=== PATIENT | male | born 1940 | race Caucasian/White ===

== ENCOUNTER 2017-09-07 06:09 | Day surgery (SDC) | payer MEDICARE ==
[2017-09-06 12:16] LABS: BASOPHILS % (AUTO) 0.4 % (0-1); EOSINOPHILS # (AUTO) 0.3 X10'3 (0-0.9); EOSINOPHILS % (AUTO) 3.6 % (0-6); HEMATOCRIT 34.6 % (42.0-52.0); HEMOGLOBIN 11.4 g/dl (14.0-17.9); LYMPHOCYTES # (AUTO) 1.3 X10'3 (1.1-4.8); LYMPHOCYTES % (AUTO) 16.6 % (21-51); MEAN CORPUSCULAR HEMOGLOBIN 28.2 PG (27.0-31.0); MEAN CORPUSCULAR VOLUME 85.6 FL (78-98); MEAN PLATELET VOLUME 6.2 FL (7.4-10.4); MONOCYTES # (AUTO) 0.6 X10'3 (0-0.9); MONOCYTES % (AUTO) 7.8 % (2-12); NEUTROPHILS # (AUTO) 5.8 X10'3 (1.8-7.7); NEUTROPHILS % (AUTO) 71.6 % (42-75); PLATELET COUNT 244 X10'3 (140-440); RED BLOOD COUNT 4.05 X10'6 (4.70-6.10); RED CELL DISTRIBUTION WIDTH 16.6 % (11.5-14.5); WHITE BLOOD COUNT 8.1 X10'3 (4.5-11.0)
[2017-09-06 12:26] LABS: PARTIAL THROMBOPLASTIN TIME 24 SECONDS (22-32); PROTHROMBIN TIME 9.9 SECONDS (9.0-12.0)
[2017-09-06 12:41] LABS: ALANINE AMINOTRANSFERASE 38 U/L (12-78); ALBUMIN 3.3 G/DL (3.4-5.0); ALBUMIN/GLOBULIN RATIO 0.8 (1.1-1.5); ALKALINE PHOSPHATASE 53 IU/L (46-116); ANION GAP 11 (8-16); ASPARTATE AMINO TRANSFERASE 26 U/L (10-37); BILIRUBIN,TOTAL 0.5 MG/DL (0.1-1.0); BLOOD UREA NITROGEN 22 MG/DL (7-18); BUN/CREATININE RATIO 12.6 (5.4-32.0); CALCIUM 8.8 MG/DL (8.5-10.1); CHLORIDE 105 MMOL/L (99-107); CREATININE 1.75 MG/DL (0.60-1.10); GLUCOSE 107 MG/DL (70-104); POTASSIUM 3.8 MMOL/L (3.5-5.1); SODIUM 144 MMOL/L (135-145); TOTAL CARBON DIOXIDE 28.5 MMOL/L (24-32); TOTAL PROTEIN 7.4 G/DL (6.4-8.2); eGFR 38 ML/MIN
[2017-09-07] VITALS (10 sets, daily range): BP systolic 104–132; BP diastolic 59–81
[~2017-09-07] VITALS: Ht 172.7 cm; Wt 94.5 kg
[~2017-09-07 06:09] MED LIST: AMIO200T57 PO; APIX5TAB3 PO; ASPI-611 PO; CARV-50 PO; FURO80TA87 PO; GLIM1TAB46 PO; HYDR-565 PO; LANS15TA5 PO; LOSA50TA3 PO; METF1000 PO; NAPR220T67 PO; PER5325T PO; POTA10TA36 PO; lipitor PO
[2017-09-07] MEDS ORDERED: normal saline 1000ml 1,000 ML IV SCH (06:40)
[2017-09-07] MEDS ORDERED: ONDA4TAB6 PO (06:54)
[2017-09-07] MEDS ORDERED: ATOR80TA PO (06:54)
[2017-09-07] MEDS ORDERED: ZAR2.5T PO (07:04)
[2017-09-07] MEDS ORDERED: LIDOcaine 1.5% w/epinephrine 1:200,000 5ml ampul ONE (09:01)
[2017-09-07] MEDS ORDERED: cefazolin 1gm/NS 100mL 100 ML IV ONE (09:01)
[2017-09-07] MEDS ORDERED: ceFAZolin 1000mg inj ONE (09:01)
[2017-09-07] MEDS ORDERED: fentaNYL/PF 50MCG/1 ML 2ML syringe ONE ×2 (09:22→09:46)
[2017-09-07] MEDS ORDERED: midazolam 2 mg/2 ml injection ONE ×2 (09:22→09:46)
[2017-09-07] MEDS ORDERED: WATER IV SCH (16:00)
[2017-09-07] MEDS ORDERED: DEXTROSE 5% IV SCH (16:00)
[2017-09-07] MEDS ORDERED: CEFAZOLIN IV SCH (16:00)
[2017-09-07] MEDS ORDERED: D5W IV SCH (16:00)
[2017-09-07] MEDS ORDERED: ceFAZolin 1GM/NS- ADD-VANTAGE 1 GM in NS 100ML IV SCH (16:00)
== END 2017-09-07 15:15 | disposition home or self-care (01) ==
LOC: SSTAY O 06:09
PROVIDERS: ATTEND Internal Medicine Cardiovascular Disease
DX: Z45.02 Encounter for adjustment and management of automatic implantable cardiac defibrillator (principal); I48.91 Unspecified atrial fibrillation; I11.0 Hypertensive heart disease with heart failure; I50.22 Chronic systolic (congestive) heart failure; E78.5 Hyperlipidemia, unspecified; E11.9 Type 2 diabetes mellitus without complications; I42.9 Cardiomyopathy, unspecified; I05.9 Rheumatic mitral valve disease, unspecified; I25.2 Old myocardial infarction; Z95.5 Presence of coronary angioplasty implant and graft; Z95.1 Presence of aortocoronary bypass graft
CPT/HCPCS: 33264; 36415; 80053; 83880; 84439; 84443; 85025; 85610; 85730; 93005; A4565; A6258; A6449; C1882; J0690; J2250; J3010; J3490; J7030; 99152; 99153; A4620; J7060

== ENCOUNTER 2017-09-20 06:52 | Outpatient (CLI) | payer MEDICARE ==
[~2017-09-20] VITALS: Ht 172.7 cm; Wt 90.7 kg
[~2017-09-20 06:52] MED LIST changes: -ASPI-611 PO; +ATOR80TA PO; -NAPR220T67 PO; +ONDA4TAB6 PO; -PER5325T PO; +ZAR2.5T PO; -lipitor PO
[2017-09-20] MEDS ORDERED: albuterol 2.5 MG/3 ML nebule NEB PRN (07:55)
[2017-09-20 09:34] LABS: ALBUMIN 3.2 G/DL (3.4-5.0); ANION GAP 9 (8-16); BLOOD UREA NITROGEN 23 MG/DL (7-18); BUN/CREATININE RATIO 13.7 (5.4-32.0); CALCIUM 9.2 MG/DL (8.5-10.1); CHLORIDE 101 MMOL/L (99-107); CREATININE 1.68 MG/DL (0.60-1.10); GLUCOSE 235 MG/DL (70-104); POTASSIUM 3.5 MMOL/L (3.5-5.1); SODIUM 141 MMOL/L (135-145); TOTAL CARBON DIOXIDE 31.2 MMOL/L (24-32); eGFR 40 ML/MIN
== END 2017-09-20 23:59 | disposition home or self-care (01) ==
LOC: RT 06:52
PROVIDERS: ATTEND Internal Medicine Cardiovascular Disease
DX: J98.11 Atelectasis (principal); I51.7 Cardiomegaly; R06.09 Other forms of dyspnea; Z95.1 Presence of aortocoronary bypass graft
CPT/HCPCS: 36415; 71046; 80048; 83880; 85018; 94060; 94640; 94727; 94729; 94760; A6449

== ENCOUNTER 2019-07-02 07:51 | Emergency (ER) | payer MEDICARE ==
[~2019-07-02] VITALS: Ht 170.2 cm; Wt 90.9 kg
[~2019-07-02 07:51] MED LIST changes: +AMIO200T54 PO; -AMIO200T57 PO; +GLIM1TAB3 PO; -GLIM1TAB46 PO; +HYDR-4353 PO; -HYDR-565 PO
--- NOTE | 2019-07-02 08:13 | NUR ---
LABS DRAWN BY INSURANCE SALES ASSOCIATE, PT NOW GOING TO XRAY VIA WHEELCHAIR WITH KEY BED INSTALLER PER ORDERS.
[2019-07-02 08:30] LABS: BASOPHILS # (AUTO) 0.1 X10'3 (0-0.2); BASOPHILS % (AUTO) 0.7 % (0-1); EOSINOPHILS # (AUTO) 0.1 X10'3 (0-0.9); EOSINOPHILS % (AUTO) 1.1 % (0-6); HEMATOCRIT 32.7 % (42.0-52.0); LYMPHOCYTES # (AUTO) 0.7 X10'3 (1.1-4.8); LYMPHOCYTES % (AUTO) 5.7 % (21-51); MEAN CORPUSCULAR HEMOGLOBIN 23.9 PG (27.0-31.0); MEAN CORPUSCULAR HGB CONC 30.7 g/dL (33.0-36.5); MEAN CORPUSCULAR VOLUME 77.7 FL (78-98); MEAN PLATELET VOLUME 6.7 FL (7.4-10.4); MONOCYTES # (AUTO) 0.7 X10'3 (0-0.9); MONOCYTES % (AUTO) 5.8 % (2-12); NEUTROPHILS % (AUTO) 86.7 % (42-75); PLATELET COUNT 270 X10'3 (140-440); RED BLOOD COUNT 4.21 X10'6 (4.70-6.10); RED CELL DISTRIBUTION WIDTH 20.5 % (11.5-14.5); WHITE BLOOD COUNT 11.5 X10'3 (4.5-11.0)
[2019-07-02] MEDS ORDERED: PRED5TAB PO (08:32)
[2019-07-02 08:47] LABS: ALANINE AMINOTRANSFERASE 42 U/L (12-78); ALBUMIN 3.3 G/DL (3.4-5.0); ALBUMIN/GLOBULIN RATIO 0.9 (1.1-1.5); ALKALINE PHOSPHATASE 39 IU/L (46-116); ANION GAP 7 (8-16); ASPARTATE AMINO TRANSFERASE 28 U/L (10-37); BILIRUBIN,TOTAL 0.8 MG/DL (0.1-1.0); BLOOD UREA NITROGEN 24 MG/DL (7-18); CALCIUM 8.9 MG/DL (8.5-10.1); CHLORIDE 103 MMOL/L (99-107); GLUCOSE 247 MG/DL (70-104); POTASSIUM 5.3 MMOL/L (3.5-5.1); SODIUM 136 MMOL/L (135-145); TOTAL CARBON DIOXIDE 26.3 MMOL/L (24-32); TOTAL PROTEIN 6.9 G/DL (6.4-8.2); eGFR 45 ML/MIN
[2019-07-02 09:07] LABS: ANISOCYTOSIS 3+; PLATELET ESTIMATE NORMAL
[2019-07-02 09:08] LABS: HYPOCHROMASIA 1+; MICROCYTOSIS 1+
[2019-07-02] MEDS ORDERED: furosemide 10 MG/1 ML 10ml inj IV ONE (09:45)
[2019-07-02 09:53] VITALS: BP 136/81
--- NOTE | 2019-07-02 10:00 | NUR ---
pulled blood from pt iv for lab, updated vs, pt to be medicated with iv lasix per orders by daniel tomlinson.
== END 2019-07-02 10:20 | disposition home or self-care (01) ==
LOC: ER 07:51
DX: I50.9 Heart failure, unspecified (principal); E87.5 Hyperkalemia; Z95.1 Presence of aortocoronary bypass graft; Z98.890 Other specified postprocedural states; Z91.040 Latex allergy status; Z79.84 Long term (current) use of oral hypoglycemic drugs; Z79.899 Other long term (current) drug therapy
CPT/HCPCS: 36415; 71046; 80053; 83605; 83880; 84484; 85025; 87040; 93005; 96374; 99285; J1940

== ENCOUNTER 2019-07-10 10:42 | Day surgery (SDC) | payer MEDICARE ==
[2019-07-09 09:28] LABS: BASOPHILS # (AUTO) 0.1 X10'3 (0-0.2); BASOPHILS % (AUTO) 0.8 % (0-1); EOSINOPHILS # (AUTO) 0.2 X10'3 (0-0.9); EOSINOPHILS % (AUTO) 1.8 % (0-6); HEMATOCRIT 32.5 % (42.0-52.0); HEMOGLOBIN 9.9 g/dl (14.0-17.9); LYMPHOCYTES # (AUTO) 0.9 X10'3 (1.1-4.8); LYMPHOCYTES % (AUTO) 7.6 % (21-51); MEAN CORPUSCULAR HEMOGLOBIN 23.4 PG (27.0-31.0); MEAN CORPUSCULAR HGB CONC 30.6 g/dL (33.0-36.5); MEAN CORPUSCULAR VOLUME 76.5 FL (78-98); MEAN PLATELET VOLUME 6.6 FL (7.4-10.4); MONOCYTES # (AUTO) 0.8 X10'3 (0-0.9); MONOCYTES % (AUTO) 6.8 % (2-12); NEUTROPHILS # (AUTO) 10.1 X10'3 (1.8-7.7); PLATELET COUNT 297 X10'3 (140-440); RED BLOOD COUNT 4.25 X10'6 (4.70-6.10); RED CELL DISTRIBUTION WIDTH 19.7 % (11.5-14.5); WHITE BLOOD COUNT 12.1 X10'3 (4.5-11.0)
[2019-07-09 09:49] LABS: ALBUMIN 3.2 G/DL (3.4-5.0); ANION GAP 10 (8-16); BLOOD UREA NITROGEN 19 MG/DL (7-18); CALCIUM 8.7 MG/DL (8.5-10.1); CHLORIDE 103 MMOL/L (99-107); CREATININE 1.58 MG/DL (0.60-1.10); GLUCOSE 246 MG/DL (70-104); POTASSIUM 3.7 MMOL/L (3.5-5.1); SODIUM 140 MMOL/L (135-145); eGFR 43 ML/MIN
[2019-07-09 10:35] LABS: ANISOCYTOSIS 2+; LARGE PLATELETS FEW; MICROCYTOSIS 1+; PLATELET ESTIMATE NORMAL
[2019-07-10] VITALS (18 sets, daily range): BP systolic 99–127; BP diastolic 62–83
[~2019-07-10] VITALS: Ht 170.2 cm; Wt 89.3 kg
[~2019-07-10 10:42] MED LIST changes: -AMIO200T54 PO; -ATOR80TA PO; -LANS15TA5 PO; -LOSA50TA3 PO; +PRED5TAB PO
[2019-07-10] MEDS ORDERED: morphine 10mg/ml inj. IV ONE (11:10)
[2019-07-10] MEDS ORDERED: amiodarone in dextrose, iso-osm 150mg/100ml bag IV ONE (11:10)
[2019-07-10] MEDS ORDERED: MIDAZolam 5mg/ml 2ml vial IV ONE (11:10)
[2019-07-10] MEDS ORDERED: normal saline 1000ml 1,000 ML IV SCH (11:10)
[2019-07-10] MEDS ORDERED: diphenhydrAMINE 25mg capsule PO ONE (11:10)
[2019-07-10] MEDS ORDERED: atropine 0.1mg/ml 10ml syringe IV ONE (11:10)
[2019-07-10] MEDS ORDERED: LORazepam 0.5 MG tablet PO ONE (11:10)
[2019-07-10] MEDS ORDERED: PER5325T PO (11:26)
== END 2019-07-10 15:45 | disposition home or self-care (01) ==
LOC: SSTAY O 10:42
PROVIDERS: ATTEND Internal Medicine Cardiovascular Disease
DX: I48.19 Other persistent atrial fibrillation (principal); I25.10 Atherosclerotic heart disease of native coronary artery without angina pectoris; I11.0 Hypertensive heart disease with heart failure; I50.22 Chronic systolic (congestive) heart failure; E11.9 Type 2 diabetes mellitus without complications; E78.5 Hyperlipidemia, unspecified; I25.2 Old myocardial infarction; E66.3 Overweight; Z68.29 Body mass index [BMI] 29.0-29.9, adult; Z79.899 Other long term (current) drug therapy; Z95.5 Presence of coronary angioplasty implant and graft; Z90.49 Acquired absence of other specified parts of digestive tract; Z96.652 Presence of left artificial knee joint; Z98.890 Other specified postprocedural states
CPT/HCPCS: 80048; 85025; 85610; 92960; 93005; J0282; J0461; J2250; J2270; J7030; Q0163

== ENCOUNTER 2019-09-11 14:55 | Outpatient (CLI) | payer MEDICARE ==
[~2019-09-11] VITALS: Ht 172.7 cm; Wt 90.7 kg
[~2019-09-11 14:55] MED LIST changes: +ALBU8.5H8 INH; +AMA1T PO; +AZI25OT PO; +CEFD300C3 PO; +DIPH-423 PO; -GLIM1TAB3 PO; -HYDR-4353 PO; +METF-436 PO; -METF1000 PO; -ONDA4TAB6 PO; +PRED10TA23 PO; -PRED5TAB PO; +TAM75C PO; -ZAR2.5T PO
[2019-09-11 16:15] LABS: TOTAL HEMOGLOBIN 11.5 G/dl (14.0-17.9)
[2019-09-11] MEDS ORDERED: albuterol 2.5 MG/3 ML nebule NEB PRN (16:55)
== END 2019-09-11 23:59 | disposition home or self-care (01) ==
LOC: RT 14:55
PROVIDERS: ATTEND Internal Medicine Pulmonary Disease
DX: J45.991 Cough variant asthma (principal)
CPT/HCPCS: 85018; 94060; 94727; 94729; 94760

== ENCOUNTER 2020-09-28 07:06 | Day surgery (SDC) | payer MEDICARE ==
[2020-09-25 13:29] LABS: BASOPHILS # (AUTO) 0.1 X10'3 (0-0.2); BASOPHILS % (AUTO) 0.3 % (0-1); EOSINOPHILS # (AUTO) 0.1 X10'3 (0-0.9); EOSINOPHILS % (AUTO) 0.9 % (0-6); HEMOGLOBIN 10.1 g/dl (14.0-17.9); LYMPHOCYTES # (AUTO) 0.8 X10'3 (1.1-4.8); LYMPHOCYTES % (AUTO) 5.8 % (21-51); MEAN PLATELET VOLUME 6.8 FL (7.4-10.4); MONOCYTES # (AUTO) 0.7 X10'3 (0-0.9); MONOCYTES % (AUTO) 4.7 % (2-12); NEUTROPHILS # (AUTO) 12.8 X10'3 (1.8-7.7); NEUTROPHILS % (AUTO) 88.3 % (42-75); PLATELET COUNT 268 X10'3 (140-440); WHITE BLOOD COUNT 14.5 X10'3 (4.5-11.0)
[2020-09-25 13:40] LABS: ALBUMIN 3.4 G/DL (3.4-5.0); ANION GAP 13 (8-16); BLOOD UREA NITROGEN 33 MG/DL (7-18); BUN/CREATININE RATIO 21.7 (5.4-32.0); CALCIUM 9.2 MG/DL (8.5-10.1); CHLORIDE 103 MMOL/L (99-107); CREATININE 1.52 MG/DL (0.60-1.10); GLUCOSE 258 MG/DL (70-104); POTASSIUM 3.9 MMOL/L (3.5-5.1); SODIUM 139 MMOL/L (135-145); TOTAL CARBON DIOXIDE 22.6 MMOL/L (24-32); eGFR 45 ML/MIN
[2020-09-25 13:52] LABS: HEMATOCRIT 32.5 % (42.0-52.0); MEAN CORPUSCULAR HEMOGLOBIN 23.4 PG (27.0-31.0); MEAN CORPUSCULAR HGB CONC 31.1 g/dL (33.0-36.5); MEAN CORPUSCULAR VOLUME 75.2 FL (78-98); RED BLOOD COUNT 4.32 X10'6 (4.70-6.10); RED CELL DISTRIBUTION WIDTH 19.2 % (11.5-14.5)
[2020-09-28] VITALS (9 sets, daily range): BP systolic 111–119; BP diastolic 70–85
[~2020-09-28] VITALS: Ht 170.2 cm; Wt 90.7 kg
[~2020-09-28 07:06] MED LIST changes: -CEFD300C3 PO; -PRED10TA23 PO
[2020-09-28] MEDS ORDERED: LORazepam 0.5 MG tablet PO ONE (07:35)
[2020-09-28] MEDS ORDERED: amiodarone 150mg/dext, iso-os 100 ML IV ONE (07:35)
[2020-09-28] MEDS ORDERED: MIDAZolam 1mg/ml 10ml vial IV ONE (07:35)
[2020-09-28] MEDS ORDERED: atropine 0.1mg/ml 10ml syringe IV ONE (07:35)
[2020-09-28] MEDS ORDERED: morphine 10mg/ml inj. IV ONE (07:35)
[2020-09-28] MEDS ORDERED: diphenhydrAMINE 25mg capsule PO ONE (07:35)
[2020-09-28] MEDS ORDERED: sodium bicarbonate (8.4%) inj. 150 ML in dextrose 5%-water 1,000 ML IV ONE (08:00)
[2020-09-28] MEDS ORDERED: METF-438 PO (09:18)
[2020-09-28] MEDS ORDERED: GLIM4TAB7 PO (09:18)
[2020-09-28] MEDS ORDERED: HYDR-3972 PO (09:18)
[2020-09-28] MEDS ORDERED: PRED5TAB PO (09:19)
[2020-09-28] MEDS ORDERED: ONDA4TAB6 PO (09:19)
[2020-09-28] MEDS ORDERED: SOTA80TA73 PO (09:19)
== END 2020-09-28 10:50 | disposition home or self-care (01) ==
LOC: SSTAY O 07:06
PROVIDERS: ATTEND Internal Medicine Cardiovascular Disease
DX: I48.91 Unspecified atrial fibrillation (principal); I25.10 Atherosclerotic heart disease of native coronary artery without angina pectoris; E78.5 Hyperlipidemia, unspecified; I11.0 Hypertensive heart disease with heart failure; I50.9 Heart failure, unspecified; Z95.1 Presence of aortocoronary bypass graft
CPT/HCPCS: 80048; 82948; 85025; 85610; 92960; 93005; 94799; J2250; J2270

== ENCOUNTER 2021-10-01 08:09 | Day surgery (SDC) | payer MEDICARE ==
[~2021-10-01] VITALS: Ht 170.2 cm; Wt 93.8 kg
[2021-10-01] VITALS (9 sets, daily range): BP systolic 109–129; BP diastolic 66–82
[~2021-10-01 08:09] MED LIST changes: -ALBU8.5H8 INH; -AMA1T PO; -AZI25OT PO; +GLIM4TAB7 PO; +HYDR-3972 PO; -METF-436 PO; +METF-438 PO; +ONDA4TAB6 PO; +POTA-205 PO; -POTA10TA36 PO; +PRED5TAB PO; +SOTA80TA73 PO; -TAM75C PO
[2021-10-01] MEDS ORDERED: amiodarone 150mg/dext, iso-os 100 ML IV ONE (08:40)
[2021-10-01] MEDS ORDERED: MIDAZolam 1mg/ml 10ml vial IV ONE (08:40)
[2021-10-01] MEDS ORDERED: LORazepam 0.5 MG tablet PO ONE (08:40)
[2021-10-01] MEDS ORDERED: atropine 0.1mg/ml 10ml syringe IV ONE (08:40)
[2021-10-01] MEDS ORDERED: morphine 10mg/ml inj. IV ONE (08:40)
[2021-10-01] MEDS ORDERED: diphenhydrAMINE 25mg capsule PO ONE (08:40)
[2021-10-01 09:12] LABS: BASOPHILS # (AUTO) 0.1 X10'3 (0-0.2); BASOPHILS % (AUTO) 0.4 % (0-1); EOSINOPHILS # (AUTO) 0.1 X10'3 (0-0.9); EOSINOPHILS % (AUTO) 0.8 % (0-6); HEMATOCRIT 35.7 % (42.0-52.0); HEMOGLOBIN 11.2 g/dl (14.0-17.9); LYMPHOCYTES # (AUTO) 0.8 X10'3 (1.1-4.8); LYMPHOCYTES % (AUTO) 5.6 % (21-51); MEAN CORPUSCULAR HEMOGLOBIN 25.2 PG (27.0-31.0); MEAN CORPUSCULAR HGB CONC 31.3 g/dL (33.0-36.5); MEAN CORPUSCULAR VOLUME 80.6 FL (78-98); MEAN PLATELET VOLUME 6.7 FL (7.4-10.4); MONOCYTES # (AUTO) 0.6 X10'3 (0-0.9); MONOCYTES % (AUTO) 4.6 % (2-12); NEUTROPHILS # (AUTO) 12.4 X10'3 (1.8-7.7); NEUTROPHILS % (AUTO) 88.6 % (42-75); PLATELET COUNT 246 X10'3 (140-440); RED BLOOD COUNT 4.43 X10'6 (4.70-6.10); RED CELL DISTRIBUTION WIDTH 19.9 % (11.5-14.5)
[2021-10-01 09:32] LABS: ANISOCYTOSIS 2+; ELLIPTOCYTES 1+; PLATELET ESTIMATE NORMAL; POLYCHROMASIA 1+; TEAR DROP CELLS 1+
[2021-10-01 09:35] LABS: ALBUMIN 3.3 G/DL (3.4-5.0); ANION GAP 10 (8-16); BLOOD UREA NITROGEN 26 MG/DL (7-18); BUN/CREATININE RATIO 16.9 (5.4-32.0); CALCIUM 9.2 MG/DL (8.5-10.1); CHLORIDE 101 MMOL/L (99-107); CREATININE 1.54 MG/DL (0.60-1.10); GLUCOSE 235 MG/DL (70-104); POTASSIUM 4.5 MMOL/L (3.5-5.1); SODIUM 137 MMOL/L (135-145); TOTAL CARBON DIOXIDE 26.2 MMOL/L (24-32); eGFR 44 ML/MIN
[2021-10-01] MEDS ORDERED: METF-900 PO (09:41)
[2021-10-01] MEDS ORDERED: GLIM4TAB7 PO (09:41)
[2021-10-01] MEDS ORDERED: OXYC-150 PO (09:41)
[2021-10-01] MEDS ORDERED: PRED10TA23 PO (09:41)
[2021-10-01] MEDS ORDERED: LOSA100T3 PO (09:41)
[2021-10-01] MEDS ORDERED: FURO80TA87 PO (09:41)
[2021-10-01] MEDS ORDERED: furosemide 40mg/4ml inj IV ONE (11:40)
[2021-10-01 12:01] LABS: CHOL/HDL RATIO 3.2 (0.00-4.99); CHOLESTEROL 217 MG/DL (0-200); HDL CHOLESTEROL 67 MG/DL (35-60); LDL CHOLESTEROL 129 MG/DL (50-100); TRIGLYCERIDES 108 MG/DL (20-135)
== END 2021-10-01 13:50 | disposition home or self-care (01) ==
LOC: SSTAY O 08:09
PROVIDERS: ATTEND Internal Medicine Cardiovascular Disease
DX: I48.0 Paroxysmal atrial fibrillation (principal); I25.10 Atherosclerotic heart disease of native coronary artery without angina pectoris; I42.9 Cardiomyopathy, unspecified; I11.0 Hypertensive heart disease with heart failure; I50.9 Heart failure, unspecified; I25.2 Old myocardial infarction; E78.49 Other hyperlipidemia; J45.909 Unspecified asthma, uncomplicated; E66.3 Overweight; Z68.32 Body mass index [BMI] 32.0-32.9, adult; E11.9 Type 2 diabetes mellitus without complications; I27.20 Pulmonary hypertension, unspecified; Z95.1 Presence of aortocoronary bypass graft; Z95.5 Presence of coronary angioplasty implant and graft; Z95.810 Presence of automatic (implantable) cardiac defibrillator; Z90.49 Acquired absence of other specified parts of digestive tract; Z98.890 Other specified postprocedural states; Z96.652 Presence of left artificial knee joint; Z91.040 Latex allergy status; Z79.899 Other long term (current) drug therapy; Z79.84 Long term (current) use of oral hypoglycemic drugs; Z80.3 Family history of malignant neoplasm of breast; Z82.49 Family history of ischemic heart disease and other diseases of the circulatory system
CPT/HCPCS: 36415; 80048; 80061; 83880; 85025; 85610; 92960; 93005; 94799; J0282; J1940; J2250; J2274; Q0163; 85008

== ENCOUNTER 2021-10-20 05:58 | Day surgery (SDC) | payer MEDICARE ==
[2021-10-19 12:52] LABS: ALBUMIN 3.2 G/DL (3.4-5.0); ANION GAP 12 (8-16); BASOPHILS # (AUTO) 0.1 X10'3 (0-0.2); BLOOD UREA NITROGEN 16 MG/DL (7-18); BUN/CREATININE RATIO 11.8 (5.4-32.0); CALCIUM 9.5 MG/DL (8.5-10.1); CHLORIDE 101 MMOL/L (99-107); CREATININE 1.36 MG/DL (0.60-1.10); EOSINOPHILS # (AUTO) 0.2 X10'3 (0-0.9); EOSINOPHILS % (AUTO) 1.8 % (0-6); GLUCOSE 219 MG/DL (70-104); HEMATOCRIT 37.4 % (42.0-52.0); HEMOGLOBIN 11.6 g/dl (14.0-17.9); LYMPHOCYTES # (AUTO) 1.2 X10'3 (1.1-4.8); MEAN CORPUSCULAR HEMOGLOBIN 25.2 PG (27.0-31.0); MEAN CORPUSCULAR HGB CONC 30.9 g/dL (33.0-36.5); MEAN CORPUSCULAR VOLUME 81.5 FL (78-98); MEAN PLATELET VOLUME 6.6 FL (7.4-10.4); MONOCYTES # (AUTO) 0.9 X10'3 (0-0.9); MONOCYTES % (AUTO) 7.9 % (2-12); NEUTROPHILS # (AUTO) 8.7 X10'3 (1.8-7.7); NEUTROPHILS % (AUTO) 78.3 % (42-75); PLATELET COUNT 241 X10'3 (140-440); POTASSIUM 3.9 MMOL/L (3.5-5.1); RED BLOOD COUNT 4.58 X10'6 (4.70-6.10); RED CELL DISTRIBUTION WIDTH 21.2 % (11.5-14.5); SODIUM 140 MMOL/L (135-145); TOTAL CARBON DIOXIDE 27.4 MMOL/L (24-32); WHITE BLOOD COUNT 11.1 X10'3 (4.5-11.0); eGFR 51 ML/MIN
[2021-10-19 12:56] LABS: APTT 25 SECONDS (22-32)
[2021-10-19 13:20] LABS: ANISOCYTOSIS 3+; ELLIPTOCYTES 1+; PLATELET ESTIMATE NORMAL
[2021-10-19 13:21] LABS: TEAR DROP CELLS FEW
[~2021-10-20] VITALS: Ht 170.2 cm; Wt 92.0 kg
[2021-10-20] VITALS (10 sets, daily range): BP systolic 104–165; BP diastolic 58–105
[~2021-10-20 05:58] MED LIST changes: -DIPH-423 PO; -HYDR-3972 PO; +LOSA100T3 PO; -METF-438 PO; +METF-900 PO; +OXYC-150 PO; +PRED10TA23 PO
[2021-10-20] MEDS ORDERED: cefazolin/dext.iso 2gm/50ml 50 ML IV ONE (06:15)
[2021-10-20] MEDS ORDERED: normal saline 1000ml 1,000 ML IV SCH (06:15)
[2021-10-20] MEDS ORDERED: LIDOCAINE 2% w/EPI 1:100:000 30mL injection MDV**cath lab 1 only ONE (07:22)
[2021-10-20] MEDS ORDERED: ceFAZolin 1000mg inj ONE (07:22)
[2021-10-20] MEDS ORDERED: midazolam 1 mg/ML 2ml injection ONE (07:33)
[2021-10-20] MEDS ORDERED: fentaNYL/PF 50MCG/1 ML 2ML syringe ONE (07:33)
[2021-10-20] MEDS ORDERED: ceFAZolin 2gm in dextrose, iso 50 ML IV ONE (08:03)
[2021-10-20] MEDS ORDERED: HYDROmorphone 1 mg/ml syringe ONE (08:33)
[2021-10-20] MEDS ORDERED: furosemide 40mg/4ml inj ONE (09:34)
[2021-10-20] MEDS ORDERED: HYDROcodone/acetaminophen 5mg/325mg tablet PO PRN (10:15)
[2021-10-20] MEDS ORDERED: HYDROcodone/acetaminophen 10/325mg tab PO PRN (10:15)
[2021-10-20] MEDS ORDERED: furosemide 20 MG/2 ML vial IV ONE (10:20)
[2021-10-20] MEDS ORDERED: vancomycin/NS 1 GM ADD-VANTAGE 250 ML X 1 DOSE IV ONE (10:20)
== END 2021-10-20 15:15 | disposition home or self-care (01) ==
LOC: SSTAY O 05:58
PROVIDERS: ATTEND Internal Medicine Cardiovascular Disease
DX: Z45.02 Encounter for adjustment and management of automatic implantable cardiac defibrillator (principal); I25.10 Atherosclerotic heart disease of native coronary artery without angina pectoris; I11.0 Hypertensive heart disease with heart failure; I50.22 Chronic systolic (congestive) heart failure; I42.9 Cardiomyopathy, unspecified; I25.2 Old myocardial infarction; E66.3 Overweight; Z68.32 Body mass index [BMI] 32.0-32.9, adult; E78.49 Other hyperlipidemia; J45.909 Unspecified asthma, uncomplicated; I48.91 Unspecified atrial fibrillation; Z95.1 Presence of aortocoronary bypass graft; Z79.01 Long term (current) use of anticoagulants; Z79.899 Other long term (current) drug therapy; Z95.5 Presence of coronary angioplasty implant and graft; Z98.890 Other specified postprocedural states; Z96.652 Presence of left artificial knee joint; Z91.040 Latex allergy status; Z83.3 Family history of diabetes mellitus; Z82.49 Family history of ischemic heart disease and other diseases of the circulatory system
CPT/HCPCS: 33264; 36415; 80048; 82948; 85025; 85610; 85730; 93005; C1882; J0690; J1170; J1940; J2250; J3010; J3370; J3490; J7030; 85008; 99152; 99153; A4620

== ENCOUNTER 2023-01-25 08:09 | Day surgery (SDC) | payer MEDICARE, MEDICAID ==
[2023-01-20 09:04] LABS: BASOPHILS # (AUTO) 0.1 X10'3 (0-0.2); BASOPHILS % (AUTO) 0.9 % (0-1); EOSINOPHILS # (AUTO) 0.1 X10'3 (0-0.9); EOSINOPHILS % (AUTO) 1.5 % (0-6); HEMATOCRIT 34.1 % (42.0-52.0); HEMOGLOBIN 10.9 g/dl (14.0-17.9); LYMPHOCYTES # (AUTO) 1.5 X10'3 (1.1-4.8); LYMPHOCYTES % (AUTO) 16.3 % (21-51); MEAN CORPUSCULAR HGB CONC 31.9 g/dL (33.0-36.5); MEAN PLATELET VOLUME 6.3 FL (7.4-10.4); MONOCYTES # (AUTO) 0.7 X10'3 (0-0.9); MONOCYTES % (AUTO) 8.1 % (2-12); NEUTROPHILS # (AUTO) 6.7 X10'3 (1.8-7.7); NEUTROPHILS % (AUTO) 73.2 % (42-75); PLATELET COUNT 239 X10'3 (140-440); RED BLOOD COUNT 3.87 X10'6 (4.70-6.10); RED CELL DISTRIBUTION WIDTH 17.8 % (11.5-14.5); WHITE BLOOD COUNT 9.1 X10'3 (4.5-11.0)
[2023-01-20 09:14] LABS: ALBUMIN 3.2 G/DL (3.4-5.0); ANION GAP 11 (8-16); BLOOD UREA NITROGEN 37 MG/DL (7-18); BUN/CREATININE RATIO 17.1 (10.0-20.0); CALCIUM 8.9 MG/DL (8.5-10.1); CHLORIDE 103 MMOL/L (99-107); CREATININE 2.17 MG/DL (0.60-1.10); GLUCOSE 136 MG/DL (70-104); POTASSIUM 3.9 MMOL/L (3.5-5.1); SODIUM 142 MMOL/L (135-145); TOTAL CARBON DIOXIDE 27.8 MMOL/L (24-32); eGFR 29 ML/MIN
[2023-01-25] VITALS (13 sets, daily range): BP systolic 95–123; BP diastolic 59–73
[~2023-01-25] VITALS: Ht 170.2 cm; Wt 87.4 kg
[~2023-01-25 08:09] MED LIST changes: +CARV-49 PO; -CARV-50 PO; +HYDR-3972 PO; +LACT1CAP26 PO; -LOSA100T3 PO; +METF-438 PO; -METF-900 PO; +ONDA4TAB12 PO; -ONDA4TAB6 PO; -OXYC-150 PO; +PRED10TA PO; -PRED10TA23 PO; -PRED5TAB PO; +SACU1TAB PO; -SOTA80TA73 PO
[2023-01-25] MEDS ORDERED: diphenhydrAMINE 25mg capsule PO ONE (08:35)
[2023-01-25] MEDS ORDERED: morphine 10mg/ml inj. IV ONE (08:35)
[2023-01-25] MEDS ORDERED: amiodarone 150mg/dext, iso-os 100 ML IV ONE (08:35)
[2023-01-25] MEDS ORDERED: normal saline 1000ml 1,000 ML IV SCH (08:35)
[2023-01-25] MEDS ORDERED: LORazepam 0.5 MG tablet PO ONE (08:35)
[2023-01-25] MEDS ORDERED: MIDAZolam 1mg/ml 10ml vial IV ONE (08:35)
[2023-01-25] MEDS ORDERED: atropine 0.1mg/ml 10ml syringe IV ONE (08:35)
[2023-01-25] MEDS ORDERED: DAPA10TA PO (09:30)
[2023-01-25] MEDS ORDERED: SOTA80TA10 PO (09:30)
[2023-01-25] MEDS ORDERED: SACU1TAB PO (09:34)
[2023-01-25] MEDS ORDERED: ZAR2.5T PO (09:34)
== END 2023-01-25 12:35 | disposition home or self-care (01) ==
LOC: SSTAY O 08:09
PROVIDERS: ATTEND Internal Medicine Cardiovascular Disease
DX: I48.92 Unspecified atrial flutter (principal); I48.0 Paroxysmal atrial fibrillation; I25.10 Atherosclerotic heart disease of native coronary artery without angina pectoris; I42.9 Cardiomyopathy, unspecified; E78.5 Hyperlipidemia, unspecified; I27.20 Pulmonary hypertension, unspecified; E11.22 Type 2 diabetes mellitus with diabetic chronic kidney disease; I13.0 Hypertensive heart and chronic kidney disease with heart failure and stage 1 through stage 4 chronic kidney disease, or unspecified chronic kidney disease; I50.42 Chronic combined systolic (congestive) and diastolic (congestive) heart failure; N18.9 Chronic kidney disease, unspecified; I34.0 Nonrheumatic mitral (valve) insufficiency; I25.2 Old myocardial infarction; M35.3 Polymyalgia rheumatica; E66.3 Overweight; Z68.30 Body mass index [BMI] 30.0-30.9, adult; Z79.01 Long term (current) use of anticoagulants; Z79.84 Long term (current) use of oral hypoglycemic drugs; Z79.899 Other long term (current) drug therapy; Z96.653 Presence of artificial knee joint, bilateral; Z95.810 Presence of automatic (implantable) cardiac defibrillator; Z95.1 Presence of aortocoronary bypass graft; Z95.5 Presence of coronary angioplasty implant and graft; Z90.49 Acquired absence of other specified parts of digestive tract; Z91.040 Latex allergy status; Z82.49 Family history of ischemic heart disease and other diseases of the circulatory system
CPT/HCPCS: 36415; 80048; 85025; 85610; 92960; 93005; J0282; J2250; J2274; J7030; Q0163; A4620

== ENCOUNTER 2024-07-09 16:20 | Inpatient (IN) | payer MEDICARE ==
[~2024-07-09] VITALS: Ht 170.2 cm; Wt 85.0 kg
[~2024-07-09 16:20] MED LIST changes: +DAPA10TA PO; -LACT1CAP26 PO; +ONDA-243 PO; -ONDA4TAB12 PO; +SOTA80TA10 PO; +ZAR2.5T PO
[2024-07-09] MEDS: HYDROmorphone inj. 0.5 MG/0.5 ML DISP.SYRIN IV ONE (17:54)
[2024-07-09] MEDS: HYDROmorphone 1 mg/ml syringe ONE (17:57)
[2024-07-09 19:06] LABS: BASOPHILS % (AUTO) 0.3 % (0-1); EOSINOPHILS % (AUTO) 0.2 % (0-6); HEMOGLOBIN 11.3 g/dl (14.0-17.9); LYMPHOCYTES # (AUTO) 0.6 X10'3 (1.1-4.8); LYMPHOCYTES % (AUTO) 4.7 % (21-51); MEAN CORPUSCULAR HEMOGLOBIN 27.6 PG (27.0-31.0); MEAN CORPUSCULAR HGB CONC 32.3 g/dL (33.0-36.5); MEAN CORPUSCULAR VOLUME 85.5 FL (78-98); MEAN PLATELET VOLUME 6.3 FL (7.4-10.4); MONOCYTES # (AUTO) 0.9 X10'3 (0-0.9); MONOCYTES % (AUTO) 7.5 % (2-12); NEUTROPHILS % (AUTO) 87.3 % (42-75); PLATELET COUNT 217 X10'3 (140-440); RED CELL DISTRIBUTION WIDTH 19.4 % (11.5-14.5); WHITE BLOOD COUNT 12.6 X10'3 (4.5-11.0)
[2024-07-09 19:30] LABS: ALANINE AMINOTRANSFERASE 18 U/L (12-78); ALBUMIN 3.1 G/DL (3.4-5.0); ALBUMIN/GLOBULIN RATIO 0.8 (1.1-1.5); ALKALINE PHOSPHATASE 44 IU/L (46-116); ANION GAP 14 (8-16); ASPARTATE AMINO TRANSFERASE 19 U/L (10-37); BILIRUBIN,TOTAL 0.4 MG/DL (0.1-1.0); BLOOD UREA NITROGEN 39 MG/DL (7-18); BUN/CREATININE RATIO 14.1 (10.0-20.0); CALCIUM 9.1 MG/DL (8.5-10.1); CHLORIDE 96 MMOL/L (99-107); CREATININE 2.77 MG/DL (0.60-1.10); POTASSIUM 4.7 MMOL/L (3.5-5.1); SODIUM 131 MMOL/L (135-145); TOTAL CARBON DIOXIDE 21.2 MMOL/L (24-32); eCRCL 19 ML/MIN; eGFR 22 ML/MIN
[2024-07-09 19:31] LABS: PLATELET ESTIMATE NORMAL
[2024-07-09 19:32] LABS: ANISOCYTOSIS 2+; POLYCHROMASIA FEW
[2024-07-09 19:43] LABS: GLUCOSE 510 MG/DL (70-104)
[2024-07-09] MEDS ORDERED: magnesium Cl slow-release 64mg tablet PO PRN (20:00)
[2024-07-09] MEDS ORDERED: potassium Cl 20 mEq SR tablet PO PRN ×2 (20:00)
[2024-07-09] MEDS ORDERED: acetaminophen 325mg tablet PO PRN (20:00)
[2024-07-09] MEDS ORDERED: ondansetron/PF 4mg/2ml inj IV PRN (20:00)
[2024-07-09] MEDS ORDERED: magnesium sulf-water 4G/100mL 100 ML IV PRN (20:00)
[2024-07-09] MEDS: K and/or MAG REPLACEMENT MC SCH (20:00)
[2024-07-09] MEDS ORDERED: magnesium sulf-water 2g/50mL 50 ML IV PRN (20:00)
[2024-07-09] MEDS ORDERED: potassium Cl 40MEQ/1/2NS 520ml 520 ML IV PRN (20:00)
[2024-07-09] MEDS: docusate sod 100mg capsule PO SCH (20:00)
[2024-07-09] MEDS ORDERED: DEXTROSE 15 GM of carb/4 tabs (each vial/BOTTLE has 4 tablets) PO PRN ×2 (20:05)
[2024-07-09] MEDS ORDERED: glucagon, human recombinant 1mg kit SUBCUT PRN (20:05)
[2024-07-09] MEDS ORDERED: dextrose 50%-water 50ml dispensing syringe IV PRN ×2 (20:05)
[2024-07-09] MEDS: normal saline 1000ml 1,000 ML IV SCH (20:10)
[2024-07-09] MEDS: normal saline 500ml IV soln 500 ML IV ONE (20:10)
[2024-07-09 20:18] LABS: APTT 23 SECONDS (22-32); PROTHROMBIN TIME 10.2 SECONDS (9.0-12.0)
[2024-07-09 20:19] LABS: MAGNESIUM 2.1 MG/DL (1.5-2.4); PHOSPHORUS 3.9 MG/DL (2.3-4.5)
[2024-07-09 20:25] LABS: HEMOGLOBIN A1C 11.5 % (4.5-6.2)
[2024-07-09 20:45] LABS: CREATINE KINASE 378 U/L (39-308); PRO BRAIN NATRIURETIC PEPTIDE 5229 PG/ML (0-450)
[2024-07-09 20:49] LABS: DIGOXIN 2.3 NG/ML (0.9-1.9)
[2024-07-09] MEDS: morphine 2 MG/ML inj. syringe IV PRN (22:29)
[2024-07-09] MEDS: INSULIN LISPRO 100 UNIT/ML INSULN.PEN MULTI-DOSE SQ SCH (22:33)
[2024-07-09] MEDS: insulin glargine (Lantus) pen - multi-dose SQ SCH (22:35)
[2024-07-09 22:54] LABS: BILIRUBIN,URINE NEGATIVE (Neg); CLARITY,URINE CLEAR (Clear); COLOR,URINE YELLOW (Yellow); GLUCOSE, URINE >=1000 mg/dl (Neg); KETONES,URINE NEGATIVE (Neg); LEUKOCYTE ESTERASE ,URINE NEGATIVE (Neg); NITRITES, URINE NEGATIVE (Neg); OCCULT BLOOD,URINE SMALL (Neg); PROTEIN,URINE NEGATIVE (Neg); UROBILINOGEN,URINE 0.2 E.U/dL (0.2-1.0)
[2024-07-09 22:59] LABS: BACTERIA,URINE FEW /HPF (Neg); SQUAMOUS EPITHELIAL CELL,UR FEW /LPF (FEW); UA COLLECTION TYPE CLN CATCH MIDSTREAM
[2024-07-09 23:00] LABS: RBC,URINE 0-2 /HPF (0-2); WBC,URINE NONE SEEN /HPF (0-4)
[2024-07-09] MEDS ORDERED: SPIR25TA5 PO (23:45)
[2024-07-09] MEDS ORDERED: LISI20TA28 PO (23:45)
[2024-07-09] MEDS ORDERED: METO-411 PO (23:45)
[2024-07-09] MEDS ORDERED: AMI200T PO (23:45)
[2024-07-09] MEDS ORDERED: DIGO125T PO (23:45)
[2024-07-10 02:05] LABS: BASOPHILS # (AUTO) 0.1 X10'3 (0-0.2); BASOPHILS % (AUTO) 0.4 % (0-1); EOSINOPHILS # (AUTO) 0.1 X10'3 (0-0.9); EOSINOPHILS % (AUTO) 0.9 % (0-6); HEMATOCRIT 34.4 % (42.0-52.0); HEMOGLOBIN 11.3 g/dl (14.0-17.9); LYMPHOCYTES # (AUTO) 1.2 X10'3 (1.1-4.8); LYMPHOCYTES % (AUTO) 10.5 % (21-51); MEAN CORPUSCULAR HEMOGLOBIN 27.7 PG (27.0-31.0); MEAN CORPUSCULAR HGB CONC 32.9 g/dL (33.0-36.5); MEAN CORPUSCULAR VOLUME 84.1 FL (78-98); MEAN PLATELET VOLUME 6.3 FL (7.4-10.4); MONOCYTES % (AUTO) 8.3 % (2-12); NEUTROPHILS # (AUTO) 9.3 X10'3 (1.8-7.7); NEUTROPHILS % (AUTO) 79.9 % (42-75); PLATELET COUNT 207 X10'3 (140-440); RED BLOOD COUNT 4.09 X10'6 (4.70-6.10); RED CELL DISTRIBUTION WIDTH 18.7 % (11.5-14.5); WHITE BLOOD COUNT 11.6 X10'3 (4.5-11.0)
[2024-07-10 02:15] LABS: ALANINE AMINOTRANSFERASE 24 U/L (12-78); ALBUMIN/GLOBULIN RATIO 0.8 (1.1-1.5); ALKALINE PHOSPHATASE 44 IU/L (46-116); ANION GAP 12 (8-16); ASPARTATE AMINO TRANSFERASE 26 U/L (10-37); BILIRUBIN,TOTAL 0.5 MG/DL (0.1-1.0); BLOOD UREA NITROGEN 35 MG/DL (7-18); BUN/CREATININE RATIO 15.8 (10.0-20.0); CALCIUM 9.3 MG/DL (8.5-10.1); CHLORIDE 100 MMOL/L (99-107); CREATININE 2.22 MG/DL (0.60-1.10); GLUCOSE 227 MG/DL (70-104); POTASSIUM 4.2 MMOL/L (3.5-5.1); SODIUM 137 MMOL/L (135-145); TOTAL CARBON DIOXIDE 25.4 MMOL/L (24-32); TOTAL PROTEIN 6.7 G/DL (6.4-8.2); eCRCL 24 ML/MIN; eGFR 29 ML/MIN
[2024-07-10 07:25] VITALS: BP 142/75; PULSE 79; RESP 18; TEMP 97.5; O2SAT 100
[2024-07-10] MEDS: pantoprazole 40mg Tablet.DR PO SCH (07:48)
[2024-07-10 10:00] VITALS: BP 127/68; PULSE 85; RESP 20; TEMP 97.4; O2SAT 99
[2024-07-10 11:18] VITALS: BP_SYST 106; BP_SYST 127; BP_SYST 84; BP_DIAS 53; BP_DIAS 68; BP_DIAS 69; PULSE 84; PULSE 85; PULSE 86
[2024-07-10] MEDS ORDERED: ondansetron 4mg rapidly disintigrating tab PO PRN (12:30)
[2024-07-10] MEDS: PERFLUTREN PROTEIN-A MICROSPHR (Optison) 0.22 MG/ML 3ML VIAL IV ONE (12:35)
[2024-07-10 18:00] VITALS: BP 118/70; PULSE 99; RESP 14; TEMP 97.1; O2SAT 98
[2024-07-10] MEDS: carVEDilol 3.125mg tablet PO SCH (20:02)
[2024-07-10] MEDS: apixaban 5mg tablet PO SCH (20:02)
[2024-07-10] MEDS: acetaminophen 325mg tablet PO PRN (20:02)
[2024-07-10] MEDS: nystatin 15 GM powder TP SCH (20:21)
[2024-07-10 22:00] VITALS: BP 115/72; PULSE 101; RESP 16; TEMP 97.5; O2SAT 96
[2024-07-11 05:08] LABS: BASOPHILS # (AUTO) 0.1 X10'3 (0-0.2); BASOPHILS % (AUTO) 0.8 % (0-1); EOSINOPHILS # (AUTO) 0.1 X10'3 (0-0.9); EOSINOPHILS % (AUTO) 1.5 % (0-6); HEMOGLOBIN 10.5 g/dl (14.0-17.9); LYMPHOCYTES # (AUTO) 0.8 X10'3 (1.1-4.8); LYMPHOCYTES % (AUTO) 9.4 % (21-51); MEAN CORPUSCULAR HEMOGLOBIN 28.1 PG (27.0-31.0); MEAN CORPUSCULAR HGB CONC 32.9 g/dL (33.0-36.5); MEAN CORPUSCULAR VOLUME 85.6 FL (78-98); MEAN PLATELET VOLUME 6.4 FL (7.4-10.4); MONOCYTES # (AUTO) 0.8 X10'3 (0-0.9); MONOCYTES % (AUTO) 9.1 % (2-12); NEUTROPHILS # (AUTO) 6.8 X10'3 (1.8-7.7); NEUTROPHILS % (AUTO) 79.2 % (42-75); PLATELET COUNT 197 X10'3 (140-440); RED BLOOD COUNT 3.74 X10'6 (4.70-6.10); RED CELL DISTRIBUTION WIDTH 19.1 % (11.5-14.5); WHITE BLOOD COUNT 8.6 X10'3 (4.5-11.0)
[2024-07-11 05:35] LABS: ALANINE AMINOTRANSFERASE 14 U/L (12-78); ALBUMIN 2.5 G/DL (3.4-5.0); ALBUMIN/GLOBULIN RATIO 0.7 (1.1-1.5); ALKALINE PHOSPHATASE 42 IU/L (46-116); ANION GAP 9 (8-16); ASPARTATE AMINO TRANSFERASE 23 U/L (10-37); BILIRUBIN,TOTAL 0.5 MG/DL (0.1-1.0); BLOOD UREA NITROGEN 36 MG/DL (7-18); BUN/CREATININE RATIO 18.4 (10.0-20.0); CALCIUM 8.6 MG/DL (8.5-10.1); CHLORIDE 101 MMOL/L (99-107); CREATININE 1.96 MG/DL (0.60-1.10); GLUCOSE 363 MG/DL (70-104); MAGNESIUM 1.9 MG/DL (1.5-2.4); POTASSIUM 4.7 MMOL/L (3.5-5.1); SODIUM 134 MMOL/L (135-145); TOTAL CARBON DIOXIDE 23.9 MMOL/L (24-32); TOTAL PROTEIN 5.9 G/DL (6.4-8.2); eCRCL 27 ML/MIN; eGFR 33 ML/MIN
[2024-07-11 06:30] VITALS: BP 141/71; PULSE 83; RESP 16; TEMP 97.9; O2SAT 98
[2024-07-11 08:00] VITALS: BP_SYST 110; BP_SYST 118; BP_SYST 136; BP_DIAS 58; BP_DIAS 70; PULSE 74; PULSE 78; PULSE 80; RESP 16; O2SAT 98
[2024-07-11] MEDS: lisinopril 2.5mg tablet PO SCH (08:00)
[2024-07-11] MEDS ORDERED: non-formulary drug (Metoprolol Succinate 1 TAB) PO SCH (08:00)
[2024-07-11] MEDS: spironolactone 25 MG tablet PO SCH (08:23)
[2024-07-11] MEDS: amiodarone 200mg tablet PO SCH (08:23)
[2024-07-11 09:18] LABS: DIGOXIN 1.8 NG/ML (0.9-1.9)
[2024-07-11 10:00] VITALS: BP 118/57; PULSE 74; RESP 16; TEMP 98.8; O2SAT 99
[2024-07-11 18:00] VITALS: BP 114/58; PULSE 75; RESP 16; TEMP 97.9; O2SAT 100
[2024-07-11 20:00] VITALS: BP 122/58; PULSE 82; RESP 18; O2SAT 96
[2024-07-11 22:00] VITALS: BP 122/58; PULSE 82; RESP 17; TEMP 98; O2SAT 99
[2024-07-12] VITALS (10 sets, daily range): BP systolic 82–133; BP diastolic 49–66; PULSE 69–93; RESP 15–19; TEMP 96.7–98; O2SAT 95–100
[2024-07-12 07:43] LABS: BLOOD UREA NITROGEN 32 MG/DL (7-18); BUN/CREATININE RATIO 19.6 (10.0-20.0); CHLORIDE 102 MMOL/L (99-107); CREATININE 1.63 MG/DL (0.60-1.10); GLUCOSE 268 MG/DL (70-104); POTASSIUM 4.5 MMOL/L (3.5-5.1); SODIUM 134 MMOL/L (135-145); eCRCL 33 ML/MIN; eGFR 41 ML/MIN
[2024-07-12 07:45] LABS: ALANINE AMINOTRANSFERASE 15 U/L (12-78); ALBUMIN 2.3 G/DL (3.4-5.0); ALBUMIN/GLOBULIN RATIO 0.6 (1.1-1.5); ALKALINE PHOSPHATASE 45 IU/L (46-116); ANION GAP 9 (8-16); ASPARTATE AMINO TRANSFERASE 18 U/L (10-37); BILIRUBIN,TOTAL 0.5 MG/DL (0.1-1.0); CALCIUM 8.9 MG/DL (8.5-10.1); MAGNESIUM 1.9 MG/DL (1.5-2.4); TOTAL CARBON DIOXIDE 23.2 MMOL/L (24-32)
[2024-07-12 07:47] LABS: BASOPHILS # (AUTO) 0.1 X10'3 (0-0.2); BASOPHILS % (AUTO) 0.9 % (0-1); EOSINOPHILS # (AUTO) 0.1 X10'3 (0-0.9); EOSINOPHILS % (AUTO) 1.8 % (0-6); HEMATOCRIT 31.4 % (42.0-52.0); HEMOGLOBIN 10.6 g/dl (14.0-17.9); LYMPHOCYTES # (AUTO) 0.8 X10'3 (1.1-4.8); LYMPHOCYTES % (AUTO) 10.1 % (21-51); MEAN CORPUSCULAR HEMOGLOBIN 28.8 PG (27.0-31.0); MEAN CORPUSCULAR HGB CONC 33.7 g/dL (33.0-36.5); MEAN CORPUSCULAR VOLUME 85.3 FL (78-98); MEAN PLATELET VOLUME 6.4 FL (7.4-10.4); MONOCYTES # (AUTO) 0.7 X10'3 (0-0.9); MONOCYTES % (AUTO) 8.6 % (2-12); NEUTROPHILS # (AUTO) 6.4 X10'3 (1.8-7.7); NEUTROPHILS % (AUTO) 78.6 % (42-75); PLATELET COUNT 194 X10'3 (140-440); RED BLOOD COUNT 3.68 X10'6 (4.70-6.10); RED CELL DISTRIBUTION WIDTH 18.4 % (11.5-14.5); WHITE BLOOD COUNT 8.2 X10'3 (4.5-11.0)
[2024-07-12] MEDS: INSULIN LISPRO 100 UNIT/ML INSULN.PEN MULTI-DOSE SQ SCH (08:38)
[2024-07-12] MEDS ORDERED: HYDROcodone/acetaminophen 5mg/325mg tablet PO PRN (08:50)
[2024-07-12] MEDS: HYDROcodone/acetaminophen 10/325mg tab PO PRN (09:00)
[2024-07-12] MEDS: LIDOcaine 5% patch TP SCH (09:00)
[2024-07-12] MEDS: insulin glargine (Lantus) pen - multi-dose SQ SCH (21:08)
[2024-07-13 06:00] VITALS: BP 96/53; PULSE 71; RESP 16; TEMP 97.7; O2SAT 98
[2024-07-13 06:26] LABS: BASOPHILS # (AUTO) 0.1 X10'3 (0-0.2); BASOPHILS % (AUTO) 0.7 % (0-1); EOSINOPHILS # (AUTO) 0.2 X10'3 (0-0.9); EOSINOPHILS % (AUTO) 2.2 % (0-6); LYMPHOCYTES % (AUTO) 12.8 % (21-51); MEAN CORPUSCULAR HEMOGLOBIN 28.3 PG (27.0-31.0); MEAN CORPUSCULAR HGB CONC 33.3 g/dL (33.0-36.5); MEAN CORPUSCULAR VOLUME 85.2 FL (78-98); MEAN PLATELET VOLUME 6.3 FL (7.4-10.4); MONOCYTES # (AUTO) 0.7 X10'3 (0-0.9); MONOCYTES % (AUTO) 8.9 % (2-12); NEUTROPHILS # (AUTO) 5.7 X10'3 (1.8-7.7); NEUTROPHILS % (AUTO) 75.4 % (42-75); PLATELET COUNT 178 X10'3 (140-440); RED BLOOD COUNT 3.52 X10'6 (4.70-6.10); RED CELL DISTRIBUTION WIDTH 18.4 % (11.5-14.5); WHITE BLOOD COUNT 7.6 X10'3 (4.5-11.0)
[2024-07-13 06:27] LABS: ALANINE AMINOTRANSFERASE 14 U/L (12-78); ALBUMIN 2.1 G/DL (3.4-5.0); ALBUMIN/GLOBULIN RATIO 0.6 (1.1-1.5); ALKALINE PHOSPHATASE 43 IU/L (46-116); ANION GAP 8 (8-16); ASPARTATE AMINO TRANSFERASE 13 U/L (10-37); BILIRUBIN,TOTAL 0.5 MG/DL (0.1-1.0); BLOOD UREA NITROGEN 40 MG/DL (7-18); BUN/CREATININE RATIO 20.5 (10.0-20.0); CALCIUM 8.7 MG/DL (8.5-10.1); CHLORIDE 100 MMOL/L (99-107); CREATININE 1.95 MG/DL (0.60-1.10); GLUCOSE 203 MG/DL (70-104); MAGNESIUM 1.9 MG/DL (1.5-2.4); SODIUM 133 MMOL/L (135-145); TOTAL CARBON DIOXIDE 25.4 MMOL/L (24-32); TOTAL PROTEIN 5.8 G/DL (6.4-8.2); eCRCL 27 ML/MIN; eGFR 33 ML/MIN
[2024-07-13 08:00] VITALS: BP_SYST 106; BP_SYST 85; BP_SYST 89; BP_DIAS 44; BP_DIAS 46; BP_DIAS 58; PULSE 72; PULSE 88; RESP 16; O2SAT 98
[2024-07-13] MEDS: EMPAGLIFLOZIN 10 MG TABLET PO SCH (08:00)
[2024-07-13] MEDS: morphine 2 MG/ML inj. syringe IV PRN (09:28)
[2024-07-13 14:41] VITALS: RESP 16
[2024-07-13] MEDS ORDERED: apixaban 5mg tablet PO SCH (15:47)
[2024-07-13] MEDS ORDERED: apixaban 2.5mg tablet PO SCH (15:48)
== END 2024-07-13 16:30 | DRG 85 ==
LOC: ER 16:21 → ED HOLD 20:03 → ORTHO 4S 07-10 07:21
PROVIDERS: ADMIT Internal Medicine Critical Care Medicine; ATTEND Internal Medicine
DX: S06.891A Other specified intracranial injury with loss of consciousness of 30 minutes or less, initial encounter (principal); I21.A1 Myocardial infarction type 2; N17.9 Acute kidney failure, unspecified; I13.0 Hypertensive heart and chronic kidney disease with heart failure and stage 1 through stage 4 chronic kidney disease, or unspecified chronic kidney disease; I50.22 Chronic systolic (congestive) heart failure; Z66 Do not resuscitate; S63.592A Other specified sprain of left wrist, initial encounter; I95.1 Orthostatic hypotension; S40.011A Contusion of right shoulder, initial encounter; N18.9 Chronic kidney disease, unspecified; E11.22 Type 2 diabetes mellitus with diabetic chronic kidney disease; I48.0 Paroxysmal atrial fibrillation; W18.39XA Other fall on same level, initial encounter; Z79.82 Long term (current) use of aspirin; Z79.899 Other long term (current) drug therapy; Z79.84 Long term (current) use of oral hypoglycemic drugs; I25.2 Old myocardial infarction; Z79.01 Long term (current) use of anticoagulants; Z95.1 Presence of aortocoronary bypass graft; Z95.0 Presence of cardiac pacemaker; Y93.89 Activity, other specified; Y92.89 Other specified places as the place of occurrence of the external cause; Y99.8 Other external cause status
CPT/HCPCS: 36415; 70450; 71045; 72125; 73030; 73110; 73200; 80053; 80162; 81001; 82550; 82948; 83036; 83605; 83735; 83880; 84100; 84484; 85008; 85025; 85610; 85730; 87040; 87081; 93005; 93306; 93880; 96374; 97161; 97530; 99285; A6223; A6446; A6449; G0378; J1171; J1815; J2270; J7030

== ENCOUNTER 2025-02-27 07:38 | Emergency (ER) | payer MEDICARE, OTHER, MEDICAID ==
[~2025-02-27] VITALS: Ht 170.2 cm; Wt 67.7 kg
[~2025-02-27 07:38] MED LIST changes: +AMIO200T76 PO; -DAPA10TA PO; +DIGO125T PO; +LISI20TA28 PO; -METF-438 PO; +METO-411 PO; -SACU1TAB PO; -SOTA80TA10 PO; +SPIR25TA5 PO
[2025-02-27 07:42] VITALS: TEMP 98.3
--- NOTE | 2025-02-27 07:57 | ELECTROCARDIOGRAPH REPORT ---
[facility] Test Date: 2025-02-27 Test Time: 07:55:07 Pat Name: CHAUNCEY BRUSH Department: PRE/OP CARDIOLOGY Room: Gender: M Home Health Speech Therapist: VARUN : 1940 Requested By: JUNO SANCHEZ Order Number: [id number] Reading MD: Dr. DEION Wood Measurements Intervals [place] Rate: 85 P: 97 GA: 131 QRS: 247 QRSD: 166 T: 81 QT: 422 QTc: 502 Interpretive Statements Atrial-sensed ventricular-paced rhythm No further analysis attempted due to paced rhythm Electronically Signed On 02-27-2025 17:26:[address] DEION Wood Please click the below link to view image of tracing.
--- NOTE | 2025-02-27 08:11 | Physician Documentation ---
History of Present Illness ~ Chief Complaint: Weakness Stated Complaint: WEAKNESS Time Seen by MD: 07:46 OK to notify your PCP?: Yes Primary Medical Doctor: Shortness of breath Source: patient, EMS, EMS notes reviewed Mode of Arrival: EMS Exam Limitations: no limitations HPI Chief Complaint: legs feel weak Caveat: None Independent Historians: Paramedics History of Present Illness: Patient is an 85-year-old man brought in by paramedics from home complaining of generalized weakness. Patient states that when he woke up this morning his legs felt generally weak and because of that he did not tried to get up out of bed. Patient states that he fell twice approxim ately one week ago. Patient states that he has peripheral neuropathy in his legs and feet and that makes it very difficult to walk. Patient denies any acute symptoms of acute illness. No chest pain. No shortness a breath. No fever, no cough, no abdominal pain, no nausea vomiting diarrhea. Review of systems: All systems were reviewed and are negative except for what is indicated in the history of present illness. Past Medical History: Congestive heart failure with an ejection fraction of 30%, hypertension, type 2 diabetes, peripheral neuropathy Past Surgical History: Noncontributory Social History: No tobacco use, no alcohol use, no drug use Medications: Reviewed as documented Nursing Notes Allergies: Reviewed as documented in Nursing Notes Medication Reconciliation Allergies: Coded Allergies: gabapentin (Verified Allergy, Unknown, PSYCHOSIS, 02/27/25) latex (Verified Allergy, Unknown, BLISTERS, 02/27/25) Scheduled Amiodarone Hcl (Cordarone), 200 MG PO DAILY, (Reported) Apixaban (Eliquis), 1 TAB PO BID, (Reported) Carvedilol (Coreg), 0.5 TAB PO BID, (Reported) Digoxin* (Lanoxin*), 1 TAB PO DAILY, (Reported) Furosemide* (Lasix*), 1 TAB PO BID, (Reported) Glimepiride* (Amaryl*), 1 TAB PO DAILY, (Reported) Lisinopril (Lisinopril), 2.5 MG PO DAILY, (Reported) Metoprolol Succinate (Metoprolol Succinate), 1 TAB PO DAILY, (Reported) Potassium Chloride (Potassium Chloride), 20 MEQ PO DAILY, (Reported) Prednisone (Prednisone), 1 TAB PO DAILY, (Reported) Spironolactone (Spironolactone), 1 TAB PO DAILY, (Reported) Scheduled PRN Hydrocodone Bit/Acetaminophen (Hydrocodon-Acetaminophn 10-325 tablet), 1 TAB PO TID PRN for pain, (Reported) Metolazone (ZAROXOLYN tablet), 1 TAB PO DAILY PRN for SOB or wheezing, (Reported) ONDANSETRON ODT 4mg tablet (Ondansetron Odt), 1 TAB PO Q8H PRN for NAUSEA, (Reported) Past Medical History Past Medical History: CVA/TIA/Stroke, Coronary Artery Disease, Congestive Heart Failure, Hypertension, Myocardial Infarction, Diabetes Past Surgical History: coronary bypass surgery, orthopedic surgeries, pacemaker Patient History: FHx: kidney cancer Alcohol Use: None Lives with: Spouse Lives In: Home Occupation: retired Review of Systems All Other Systems at this time: Reviewed and Negative ROS Patient denies any other acute symptoms other than above. All other systems are negative Physical Exam Vital Signs: RN Vital Signs have been reviewed: Yes, Temperature: 98.3, Source: Oral, Heart Rate: 89, Respiratory Rate: 16, BP: 149/67, Pulse Oximetry: 100, Weight: 67.700 Oxygen Flow Rate: 0 Pulse Oximetry Reflects: adequate oxygenation Physical Exam General Appearance: NO DISTRESS, CHRONICALLY ILL-APPEARING HEENT: Normal OP, moist oral mucosa, PERRL, EOMI Neck: supple, normal ROM, trachea midline Pulmonary: No respiratory distress, CTA, BS equal Cardiac: RRR, no murmur, rub or gallop, GI: nondistended, soft, nontender, normal bowel sounds, no guarding, no rebound Extremities: RIGHT LOWER EXTREMITY IS ALWAYS A LITTLE LARGER AND SWOLLEN COMPARED TO THE LEFT. 2+ NONPITTING EDEMA IN THE RIGHT LEG AND FOOT. Skin: intact, dry, warm, no rashes Neuro: AAOx3, speech is clear, no focal motor weakness Psych: normal affect, good eye contact, no apparent hallucination, normal speech Progress Results/Orders Results/Orders Orders - JUNO SANCHEZ MD Straight Cath For Urine Sample (02/27/25 07:46) Completed Orders - JUNO SANCHEZ MD Cbc/Diff (02/27/25 07:46) Urinalysis, Cult If Indicated (02/27/25 07:46) BMP (02/27/25 07:46) Furosemide Tablet (Lasix Tablet) (02/27/25 07:50) Electrocardiogram (02/27/25 07:46) Medications Received in ER Medications (Trade) Dose Ordered Sig/Kamaljit Route PRN Reason Start Time Stop Time Status Last Admin Dose Admin (Lasix tablet) 80 mg ONCE ONCE PO 02/27/25 07:50 02/27/25 07:51 DC 02/27/25 08:13 80 MG Vital Signs 02/27/25 02/27/25 02/27/25 07:42 07:55 09:12 Temp 98.3 Pulse 89 83 Resp 16 16 23 B/P (MAP) 149/67 136/61 (86) Pulse Ox 100 99 O2 Flow Rate 0 Laboratory Tests Test 02/27/25 07:58 02/27/25 09:30 White Blood Count 11.8 H Red Blood Count 4.17 L Hemoglobin 10.0 L Hematocrit 31.2 L Mean Corpuscular Volume 74.8 L Mean Corpuscular Hemoglobin 24.0 L Mean Corpuscular Hemoglobin Concent 32.0 L Red Cell Distribution Width 20.4 H Platelet Count 256 Mean Platelet Volume 6.3 L Neutrophils (%) (Auto) 84.5 H Lymphocytes (%) (Auto) 7.8 L Monocytes (%) (Auto) 5.3 Eosinophils (%) (Auto) 1.9 Basophils (%) (Auto) 0.5 Neutrophils # (Auto) 10.0 H Lymphocytes # (Auto) 0.9 L Monocytes # (Auto) 0.6 Eosinophils # (Auto) 0.2 Basophils # (Auto) 0.1 CBC Comment Sodium Level 135 Potassium Level 4.0 Chloride Level 100 Carbon Dioxide Level 27.2 Anion Gap 8 Blood Urea Nitrogen 30 H Creatinine 1.53 H Estimated GFR/1.73 m2 44 BUN/Creatinine Ratio 19.6 Glucose Level 235 H Calcium Level 8.8 Albumin 2.8 L Chemistry Comments Urine Specimen Description Urinal Urine Color Straw Urine Clarity Clear Urine pH 6.0 Urine Specific [place] 1.010 Urine Protein Negative Urine Glucose (UA) 250 H Urine Ketones Negative Urine Occult Blood Negative Urine Nitrite Negative Urine Bilirubin Negative Urine Urobilinogen 0.2 Urine Leukocyte Esterase Negative Urine Culture Indicated Not ind Volume Urine Centrifuged 10 ml Urine Comment Medical Decision Making Findings Differential diagnosis includes but is not limited to: Dehydration, electrolyte abnormalities, peripheral neuropathy, urinary tract infection EKG independent interpretation: Performed at 7:55 a.m.. Atrial sense, ventricular paced, heart rate 85, wide QRS Laboratory data independent interpretation: CBC: Mild leukocytosis of 11.8 CMP: Unremarkable, elevated BUN creatinine of 30/1.53 is at his baseline., serum glucose elevated at 235 Urinalysis: Unremarkable Emergency department course/medical decision-making: Patient presents with generalized weakness. Patient isn't having any symptoms consistent with the acute CVA. Patient's mental status and neurological exam is at baseline. Patient has severe peripheral lower extremity neuropathy. Patient is afebrile and hemodynamically stable. No medical or surgical emergency has been identified. Test results reviewed with the patient. He is instructed to follow up with his primary care doctor he is instructed to return if he develops any acute symptoms consistent with a stroke such as one arm or leg weakness, slurred speech. Patient is stable for discharge. Departure Time of Disposition: 10:23 Disposition: 01 HOME / SELF CARE / HOMELESS Impression: Primary Impression: Generalized weakness Condition: Stable Discharge Instructions: Weakness, [id number] Additional Instructions: FOLLOW UP WITH YOUR PRIMARY CARE DOCTOR. GIVE THEM A CALL TODAY TO SET UP AN APPOINTMENT NEXT WEEK. RETURN TO THE EMERGENCY DEPARTMENT IF YOU DEVELOP A FEVER OR ANY NEW SYMPTOMS. Education Educated: Patient Educated regarding: diagnosis, treatment, need for follow up Signature Scribe Signature: No scribe Attestation: No scribe JUNO SANCHEZ MD Feb 27, 2025 08:11
[2025-02-27 08:29] LABS: MEAN PLATELET VOLUME 6.3 FL (7.4-10.4); RED CELL DISTRIBUTION WIDTH 20.4 % (11.5-14.5)
[2025-02-27 08:37] LABS: CREATININE 1.53 MG/DL (0.60-1.10); TOTAL CARBON DIOXIDE 27.2 MMOL/L (24-32); eCRCL 34 ML/MIN; eGFR 44 ML/MIN
[2025-02-27 09:12] VITALS: BP 136/61; PULSE 83; RESP 23; O2SAT 99
[2025-02-27 10:10] LABS: LEUKOCYTE ESTERASE ,URINE NEGATIVE (Neg); NITRITES, URINE NEGATIVE (Neg); OCCULT BLOOD,URINE NEGATIVE (Neg)
[2025-02-27 10:13] LABS: UA COLLECTION TYPE URINAL
== END 2025-02-27 10:28 | disposition home or self-care (01) ==
LOC: ER 07:38
DX: R53.1 Weakness (principal); I11.0 Hypertensive heart disease with heart failure; I50.9 Heart failure, unspecified; E11.42 Type 2 diabetes mellitus with diabetic polyneuropathy; I25.2 Old myocardial infarction; I25.10 Atherosclerotic heart disease of native coronary artery without angina pectoris; Z86.73 Personal history of transient ischemic attack (TIA), and cerebral infarction without residual deficits; Z95.1 Presence of aortocoronary bypass graft; Z95.0 Presence of cardiac pacemaker; Z88.8 Allergy status to other drugs, medicaments and biological substances; Z91.040 Latex allergy status; Z79.899 Other long term (current) drug therapy
CPT/HCPCS: 36415; 80048; 81003; 85025; 93005; 99284

== ENCOUNTER 2025-05-20 09:59 | Emergency (ER) | payer MEDICARE, OTHER ==
[~2025-05-20] VITALS: Ht 170.2 cm; Wt 72.7 kg
[2025-05-20 10:01] VITALS: TEMP 97.9
--- NOTE | 2025-05-20 12:15 | Physician Documentation ---
History of Present Illness ~ Chief Complaint: Abscess Stated Complaint: ABSCESS Time Seen by MD: 11:31 Primary Medical Doctor: BOYD FLORENTINO Mode of Arrival: POV, Ambulatory HPI 85-year-old male presents to the ED with a complaint of an abscess that is developed on his chest. He was sent here out of concerns that the abscess is relatively close to his pacemaker location.. Patient states other than the pain from the abscess he feels absolutely fine denies any chest pain shortness of breath fevers or nausea vomiting Patient states he does have a history of skin cancer on his head. Day of Onset: May 20, 2025 Tetanus Within 5 Years: No Medication Reconciliation Allergies: Coded Allergies: gabapentin (Verified Allergy, Unknown, PSYCHOSIS, 05/20/25) latex (Verified Allergy, Unknown, BLISTERS, 05/20/25) Scheduled Amiodarone Hcl (Cordarone), 200 MG PO DAILY, (Reported) Apixaban (Eliquis), 1 TAB PO BID, (Reported) Carvedilol (Coreg), 0.5 TAB PO BID, (Reported) Digoxin* (Lanoxin*), 1 TAB PO DAILY, (Reported) Furosemide* (Lasix*), 1 TAB PO BID, (Reported) Glimepiride* (Amaryl*), 1 TAB PO DAILY, (Reported) Lisinopril (Lisinopril), 2.5 MG PO DAILY, (Reported) Metoprolol Succinate (Metoprolol Succinate), 1 TAB PO DAILY, (Reported) Potassium Chloride (Potassium Chloride), 20 MEQ PO DAILY, (Reported) Prednisone (Prednisone), 1 TAB PO DAILY, (Reported) Spironolactone (Spironolactone), 1 TAB PO DAILY, (Reported) Scheduled PRN Hydrocodone Bit/Acetaminophen (Hydrocodon-Acetaminophn 10-325 tablet), 1 TAB PO TID PRN for pain, (Reported) Metolazone (ZAROXOLYN tablet), 1 TAB PO DAILY PRN for SOB or wheezing, (Reported) ONDANSETRON ODT 4mg tablet (Ondansetron Odt), 1 TAB PO Q8H PRN for NAUSEA, (Reported) Past Medical History Past Medical History: CVA/TIA/Stroke, Coronary Artery Disease, Congestive Heart Failure, Hypertension, Myocardial Infarction, Diabetes Past Surgical History: coronary bypass surgery, orthopedic surgeries, pacemaker Patient History: FHx: kidney cancer Alcohol Use: None Lives with: Spouse Lives In: Home Occupation: retired Review of Systems All Other Systems at this time: Reviewed and Negative ROS As stated above in the HPI, otherwise all systems are reviewed and negative. Physical Exam Vital Signs: Temperature: 97.9, Heart Rate: 90, Respiratory Rate: 16, BP: 156/84, Pulse Oximetry: 98, Weight: 72.730 Oxygen Flow Rate: 0 Physical Exam General: Alert, no apparent distress. Neurologic: Oriented x4. Psychiatric: Normal mood and affect. Skin: . 5x 7 cm raised area that feels fluctuant on the left side of the chest area is erythematous in the surrounding teach tissue and center Procedures I & D Procedure : Anesthesia: Lidocaine w/ Epi Blade Size: 11 Prep/Supplies: packing placed Incision: pus drained Tolerated Procedure Well?: yes, no complications Progress Results/Orders Results/Orders Orders - NICK DING SOFT SUGAR OPERATOR HEAD Laceration/I&D Tray Set Up (05/20/25 ) Completed Orders - NICK DING SOFT SUGAR OPERATOR HEAD Lidocaine 1% W/Epi 1:100,000 (Xylocaine (05/20/25 12:15) Medications Received in ER Medications (Trade) Dose Ordered Sig/Kamaljit Route PRN Reason Start Time Stop Time Status Last Admin Dose Admin (Xylocaine 1%-EPI 1:100,000) 30 ml ONCE ONCE SQ 05/20/25 12:15 05/20/25 12:16 DC 05/20/25 12:19 30 ML Vital Signs 05/20/25 05/20/25 05/20/25 10:01 11:29 11:31 Temp 97.9 Pulse 95 90 Resp 18 16 16 B/P (MAP) 155/79 156/84 (108) Pulse Ox 97 98 O2 Flow Rate 0 0 Medical Decision Making Additional information obtaine: old records, N/A Findings I was able to drain this abscess on patient's chest without difficulty however while I was de loculated II made note of suspicious lesion in the surrounding tissue. He is on the patient's history of skin cancer I am recommended that he follows up with Dermatology for further evaluation. I used a quarter-inch packing and placed a proximally 3-1/2 inches of quarter-inch packing. Advised the patient to remove the packing in three days he will be starting him on oral antibiotics and have him follow up in the outpatient setting Differential Dx:Considerations: Include: Abscess, Bacteremia, Cellulitis, Erysipelas, Felon, Gas gangrene, Hidrademitis suppurativa, Impetigo, Lymphangitis, Osteromyelitis, Paronychia, Septicemia, Other Departure Disposition: 01 HOME / SELF CARE / HOMELESS Impression: Primary Impression: Abscess Additional Impression: Lesion of chest Condition: Improved Discharge Instructions: Abscess, Care After, Excision of Skin Lesions Additional Instructions: Who is happy to take care of you today as I instructed it is important to remove the packing in 2-3 days to allow for drainage of the abscess. Also I am recommending that she follow up with Dermatology for further evaluation of your chest lesion Referrals: NO PRIMARY CARE PROVIDER (PCP) Prescriptions Doxycycline Monohydrate (Doxycycline Monohydrate) 100 Mg Capsule 1 CAP PO Q12H for 10 Days, #20 CAP Prov: NICK DING NP 05/20/25 Education Educated: Patient Educated regarding: diagnosis Signature Scribe Signature: h Attestation: Scribed for Nick Ding Emt/Paramedic by Nick Pearson NP . 05/20/25 12:13 NICK DING NP May 20, 2025 12:15
[2025-05-20] MEDS: LIDOcaine 1% W/epiNEPHrine 1:100,000 20ml vial SQ ONE (12:19)
[2025-05-20] MEDS ORDERED: DOXY-347 PO (12:42)
[2025-05-20 13:04] VITALS: BP 138/77; PULSE 90; RESP 18; O2SAT 98
== END 2025-05-20 13:05 | disposition home or self-care (01) ==
LOC: ER 09:59
DX: J86.9 Pyothorax without fistula (principal); I11.0 Hypertensive heart disease with heart failure; I50.9 Heart failure, unspecified; I25.2 Old myocardial infarction; I25.10 Atherosclerotic heart disease of native coronary artery without angina pectoris; E11.9 Type 2 diabetes mellitus without complications; Z85.828 Personal history of other malignant neoplasm of skin; Z86.73 Personal history of transient ischemic attack (TIA), and cerebral infarction without residual deficits; Z91.040 Latex allergy status; Z88.8 Allergy status to other drugs, medicaments and biological substances; Z95.0 Presence of cardiac pacemaker; Z95.1 Presence of aortocoronary bypass graft; Z79.899 Other long term (current) drug therapy
CPT/HCPCS: 10060; 99284; A6258; A6402; A6407; J3490; Z7610; A6449

== ENCOUNTER 2025-05-22 17:04 | Emergency (ER) | payer MEDICARE, OTHER ==
[~2025-05-22] VITALS: Ht 170.2 cm; Wt 75.3 kg
[~2025-05-22 17:04] MED LIST changes: +DOXY-347 PO
--- NOTE | 2025-05-22 17:15 | Physician Documentation ---
History of Present Illness ~ Chief Complaint: Urinary Retention Stated Complaint: UNABLE TO URINATE Time Seen by MD: 17:11 Primary Medical Doctor: BOYD WISE This is an 85-year-old male who presents with concern for not being of the urinate for the past 12 hours despite being on Lasix, patient reports no abdominal discomfort or pain and reports no other acute symptoms or concerns. Medication Reconciliation Allergies: Coded Allergies: gabapentin (Verified Allergy, Unknown, PSYCHOSIS, 05/22/25) latex (Verified Allergy, Unknown, BLISTERS, 05/22/25) Scheduled Amiodarone Hcl (Cordarone), 200 MG PO DAILY, (Reported) Apixaban (Eliquis), 1 TAB PO BID, (Reported) Carvedilol (Coreg), 0.5 TAB PO BID, (Reported) Digoxin* (Lanoxin*), 1 TAB PO DAILY, (Reported) Doxycycline Monohydrate (Doxycycline Monohydrate), 1 CAP PO Q12H Furosemide* (Lasix*), 1 TAB PO BID, (Reported) Glimepiride* (Amaryl*), 1 TAB PO DAILY, (Reported) Lisinopril (Lisinopril), 2.5 MG PO DAILY, (Reported) Metoprolol Succinate (Metoprolol Succinate), 1 TAB PO DAILY, (Reported) Potassium Chloride (Potassium Chloride), 20 MEQ PO DAILY, (Reported) Prednisone (Prednisone), 1 TAB PO DAILY, (Reported) Spironolactone (Spironolactone), 1 TAB PO DAILY, (Reported) Scheduled PRN Hydrocodone Bit/Acetaminophen (Hydrocodon-Acetaminophn 10-325 tablet), 1 TAB PO TID PRN for pain, (Reported) Metolazone (ZAROXOLYN tablet), 1 TAB PO DAILY PRN for SOB or wheezing, (Reported) ONDANSETRON ODT 4mg tablet (Ondansetron Odt), 1 TAB PO Q8H PRN for NAUSEA, (Reported) Past Medical History Past Medical History: CVA/TIA/Stroke, Coronary Artery Disease, Congestive Heart Failure, Hypertension, Myocardial Infarction, Diabetes Past Surgical History: coronary bypass surgery, orthopedic surgeries, pacemaker Patient History: FHx: kidney cancer Alcohol Use: None Lives with: Spouse Lives In: Home Occupation: retired Review of [employer] ROS As stated above in the HPI, otherwise all systems are reviewed and negative. Physical Exam Vital Signs: Temperature: 97.2, Source: Temporal, Heart Rate: 84, Respiratory Rate: 16, BP: 135/78, Pulse Oximetry: 100, Weight: 75.300 Oxygen Flow Rate: 0 Physical Exam VITALS: Reviewed and as above. GENERAL: Alert, nontoxic appearing, no apparent distress. RESPIRATORY: No increased work of breathing, no respiratory distress, speaking in full clear sentences, clear lung sounds in all hernández CV: Regular rate and rhythm no murmur, no extremity edema GI: Soft, nondistended, nontender, no rebound, no guarding, bowel sounds present MUSCULOSKELETAL: SKIN: Warm and dry Progress Progress Note Bladder scan by nursing demonstrated 183 mL patient's bladder Results/Orders Results/Orders Orders - HARPER BRODY Bladder Scan (05/22/25 ) Completed Orders - HARPER BRODY Cbc/Diff (05/22/25 17:13) BMP (05/22/25 17:13) Vital Signs 05/22/25 05/22/25 05/22/25 05/22/25 17:07 18:26 18:26 19:17 Temp 97.2 97.2 Pulse 84 70 66 Resp 16 16 16 B/P (MAP) 135/78 125/66 (85) 119/65 Pulse Ox 100 95 98 O2 Flow Rate 0 0 Laboratory Tests Test 05/22/25 17:29 White Blood Count 12.0 H Red Blood Count 4.21 L Hemoglobin 10.3 L Hematocrit 32.4 L Mean Corpuscular Volume 76.9 L Mean Corpuscular Hemoglobin 24.5 L Mean Corpuscular Hemoglobin Concent 31.9 L Red Cell Distribution Width 18.6 H Platelet Count 337 Mean Platelet Volume 6.3 L Neutrophils (%) (Auto) 92.0 H Lymphocytes (%) (Auto) 3.9 L Monocytes (%) (Auto) 2.8 Eosinophils (%) (Auto) 0.9 Basophils (%) (Auto) 0.4 Neutrophils # (Auto) 11.0 H Lymphocytes # (Auto) 0.5 L Monocytes # (Auto) 0.3 Eosinophils # (Auto) 0.1 Basophils # (Auto) 0.1 CBC Comment Platelet Estimate Normal Red Blood Cell Morphology Perf Basophilic Stippling Anisocytosis 2+ Microcytosis 1+ Sodium Level 133 L Potassium Level 4.7 Chloride Level 99 Carbon Dioxide Level 21.5 L Anion Gap 13 Blood Urea Nitrogen 13 Creatinine 1.52 H Estimated GFR/1.73 m2 44 BUN/Creatinine Ratio 8.6 L Glucose Level 240 H Calcium Level 9.1 Albumin 2.6 L Chemistry Comments Medical Decision Making Additional information obtaine: old records Findings This 85-year-old male presented to the emergency department with concern for not needing to urinate for 12 hours, patient reports no pain or urge to urinate and reported no acute symptoms or concerns other than not needing to urinate for 12 hours. Physical exam was benign with no abdominal pain and no extremity edema, a bladder scan was performed by nursing demonstrating only 183 mL of urine patient's bladder. Lab work demonstrated evidence of dehydration otherwise did not demonstrate significant abnormality. I suspect patient has not had the need to urinate for the day due to being dehydrated I discussed with the patient slo wly increasing his fluid intake and falling up with his primary care provider to establish a plan for better oral hydration during the day while balancing his Lasix dose. Patient is otherwise well-appearing and appropriate for outpatient follow up. Patient provided follow up instructions, return to care precautions and home care instructions which he verbalized understanding of. Urinary Diff Dx:Considerations: Include: Postoperative Comp., Prostatitis, Pyelonephritis, Urinary Obstruction, Urethritis, Urinary retention, UTI Genital Diff Dx:Considerations: Include: Balanitis, Balanoposthitis, Foreign body, UTI Departure Time of Disposition: 19:12 Disposition: 01 HOME / SELF CARE / HOMELESS Impression: Primary Impression: Dehydration Condition: Improved Discharge Instructions: Dehydration, Elderly, [id number] Additional Instructions: Your labs showed that you are dehydrated this is likely why you have not had to urinate for the day. Slowly increase your fluid intake in conjunction with discussion with your primary care provider and/or data security coordinator. Please follow up with your primary care provider in the next few days. Please return to the emergency department for any new or worsening concerning symptoms. Referrals: NO PRIMARY CARE PROVIDER (PCP) Education Educated: Patient, Family Educated regarding: diagnosis, treatment, prognosis, need for follow up Signature Scribe Signature: No scribe Attestation: The note accurately reflects work and decisions made by me.LAST Waite 05/23/25 01:43 Parts of this note were created using [employer] voice recognition software program. While efforts were made to correct any mistakes made by this voice recognition software program, nonsensical phrases may remain in this note. In addition, there may be errors and syntax, grammar, content and spelling. HARPER BRODY [facility] May 22, 2025 17:15
[2025-05-22 18:03] LABS: MEAN PLATELET VOLUME 6.3 FL (7.4-10.4); RED CELL DISTRIBUTION WIDTH 18.6 % (11.5-14.5)
[2025-05-22 18:17] LABS: CREATININE 1.52 MG/DL (0.60-1.10); TOTAL CARBON DIOXIDE 21.5 MMOL/L (24-32); eCRCL 34 ML/MIN; eGFR 44 ML/MIN
[2025-05-22 18:26] VITALS: TEMP 97.2
[2025-05-22 18:30] LABS: PLATELET ESTIMATE NORMAL
[2025-05-22 19:17] VITALS: BP 119/65; PULSE 66; RESP 16; O2SAT 98
== END 2025-05-22 19:22 | disposition home or self-care (01) ==
LOC: ER 17:04
DX: E86.0 Dehydration (principal); I11.0 Hypertensive heart disease with heart failure; I50.9 Heart failure, unspecified; E11.9 Type 2 diabetes mellitus without complications; I25.2 Old myocardial infarction; I25.10 Atherosclerotic heart disease of native coronary artery without angina pectoris; Z88.8 Allergy status to other drugs, medicaments and biological substances; Z91.040 Latex allergy status; Z95.0 Presence of cardiac pacemaker; Z95.1 Presence of aortocoronary bypass graft; Z86.73 Personal history of transient ischemic attack (TIA), and cerebral infarction without residual deficits
CPT/HCPCS: 36415; 80048; 85008; 85025; 99284

== ENCOUNTER 2025-06-29 09:40 | Inpatient (IN) | payer MEDICARE, OTHER ==
[~2025-06-29] VITALS: Ht 170.2 cm; Wt 74.3 kg
[~2025-06-29 09:40] MED LIST changes: -DOXY-347 PO
--- NOTE | 2025-06-29 09:50 | Physician Documentation ---
History of Present Illness ~ Stated Complaint: DIZZINESS Time Seen by MD: 09:47 Primary Medical Doctor: BOYD FLORENTINO HPI 85-year-old male, presenting with dizziness/vertigo He tells me that for the past 2 days he has been having dizziness/vertigo. He states it occurs primarily when he tries to sit up or stand up. It also happens when he turns his eyes to the side. He was not able to get out of bed today due to this. He also reports having generalized weakness. No headache. No other visual changes. No nausea or vomiting. No fevers or chills. No dysuria. He does have chronic swelling in his right leg after past surgery but denies any worsening today. It was more swollen yesterday but he took Lasix with success. No history of similar. He does have hearing aids. Medication Reconciliation Allergies: Coded Allergies: gabapentin (Verified Allergy, Unknown, PSYCHOSIS, 06/29/25) latex (Verified Allergy, Unknown, BLISTERS, 06/29/25) Scheduled Amiodarone Hcl (Cordarone), 200 MG PO DAILY, (Reported) Apixaban (Eliquis), 1 TAB PO BID, (Reported) Carvedilol (Coreg), 0.5 TAB PO BID, (Reported) Digoxin* (Lanoxin*), 1 TAB PO DAILY, (Reported) Furosemide* (Lasix*), 1 TAB PO BID, (Reported) Glimepiride* (Amaryl*), 1 TAB PO DAILY, (Reported) Lisinopril (Lisinopril), 2.5 MG PO DAILY, (Reported) Metoprolol Succinate (Metoprolol Succinate), 1 TAB PO DAILY, (Reported) Potassium Chloride (Potassium Chloride), 20 MEQ PO DAILY, (Reported) Prednisone (Prednisone), 1 TAB PO DAILY, (Reported) Spironolactone (Spironolactone), 1 TAB PO DAILY, (Reported) Scheduled PRN Hydrocodone Bit/Acetaminophen (Hydrocodon-Acetaminophn 10-325 tablet), 1 TAB PO TID PRN for pain, (Reported) Metolazone (ZAROXOLYN tablet), 1 TAB PO DAILY PRN for SOB or wheezing, (Reported) ONDANSETRON ODT 4mg tablet (Ondansetron Odt), 1 TAB PO Q8H PRN for NAUSEA, (Reported) Past Medical History Past Medical History: CVA/TIA/Stroke, Coronary Artery Disease, Congestive Heart Failure, Hypertension, Myocardial Infarction, Diabetes Past Surgical History: coronary bypass surgery, orthopedic surgeries, pacemaker Patient History: FHx: kidney cancer Alcohol Use: None Lives with: Spouse Lives In: Home Occupation: retired Review of Systems Constitutional: Reports: weakness; Denies: fever Neurological: Reports: dizziness; Denies: headache Physical Exam Physical Exam General: This is a pleasant elderly man sitting quietly in bed HEENT: Atraumatic, oropharynx appears dry. Hearing aids in place. With these removed, he does have a small amount of ear wax in both ears but the tympanic membranes are mathis and nonbulging Heart: Regular rate and rhythm, normal-appearing peripheral perfusion Lungs: Clear breath sounds bilateral, normal work of breathing, normal oxygen saturation on room air Abdomen: Soft, nondistended, nontender all quadrants Extremities: Warm and well-perfused. Right lower extremity has significant edema compared to the left. No tenderness or overlying skin changes Neuro: Alert and oriented. The patient does have mild nystagmus when he looks to the side in both directions. Pupils are symmetric and reactive. No facial droop. Speech is clear. Normal strength and sensation in all 4 extremities. Psychiatric: Calm and cooperative with exam Progress Results/Orders Results/Orders Orders - YESICA VILLEDA MD Ct Head (06/29/25 12:32) Cta Neck/Head (06/29/25 12:32) Normal Saline 500ml Iv Soln (Sodium Chlo (06/29/25 13:20) Chest,Single View (06/29/25 13:16) Page Hospitalist (06/29/25 13:47) Acetaminophen 325mg Tablet (Tylenol Tabl (06/29/25 13:50) Normal Saline 1000ml (0.9% Sodium Chlori (06/29/25 13:50) Completed Orders - YESICA VILLEDA MD Electrocardiogram (06/29/25 09:50) Cbc/Diff (06/29/25 09:50) CMP (06/29/25 09:50) TSH (06/29/25 09:50) Ct Head (06/29/25 12:32) BMP (06/29/25 09:52) Hs Troponin I W Calculations (06/29/25 09:52) Cta Neck/Head (06/29/25 12:32) Iohexol 350mg/Ml 50ml Inj (Omnipaque 350 (06/29/25 10:45) Iohexol 350mg/Ml 100ml (Omnipaque 350mg/ (06/29/25 10:46) Man Diff (06/29/25 10:11) Chest,Single View (06/29/25 13:16) Ua W/Microscopic, Cult If Ind (06/29/25 13:14) Vital Signs 06/29/25 06/29/25 06/29/25 06/29/25 09:46 10:53 11:32 13:04 Temp 97.8 Pulse 59 74 83 Resp 16 16 12 15 B/P (MAP) 147/81 110/90 (97) 126/91 (103) Pulse Ox 99 98 98 O2 Flow Rate 0 0 06/29/25 06/29/25 13:28 13:29 Pulse 90 104 B/P (MAP) 110/64 98/64 Laboratory Tests Test 06/29/25 10:11 06/29/25 13:14 White Blood Count 12.1 H Red Blood Count 4.57 L Hemoglobin 10.9 L Hematocrit 35.0 L Mean Corpuscular Volume 76.6 L Mean Corpuscular Hemoglobin 23.9 L Mean Corpuscular Hemoglobin Concent 31.2 L Red Cell Distribution Width 19.9 H Platelet Count 407 Mean Platelet Volume 6.6 L Neutrophils (%) (Auto) 79.1 H Lymphocytes (%) (Auto) 10.7 L Monocytes (%) (Auto) 9.3 Eosinophils (%) (Auto) 0.6 Basophils (%) (Auto) 0.3 Neutrophils # (Auto) 9.6 H Lymphocytes # (Auto) 1.3 Monocytes # (Auto) 1.1 H Eosinophils # (Auto) 0.1 Basophils # (Auto) 0.0 CBC Comment Differential Total Cells Counted 100 Neutrophils % (Manual) 81.0 H Lymphocytes % (Manual) 10.0 L Monocytes % (Manual) 8.0 Eosinophils % (Manual) 1.0 Hypersegmented Neutrophils Few Toxic Granulation 1+ Platelet Estimate Normal Red Blood Cell Morphology Perf Polychromasia 1+ Hypochromasia 1+ Basophilic Stippling Anisocytosis 2+ Microcytosis 1+ Tear Drop Cells Few Elliptocytes 1+ Sodium Level 129 L Potassium Level 3.2 L Chloride Level 86 L Carbon Dioxide Level 33.5 H Anion Gap 10 Blood Urea Nitrogen 41 H Creatinine 2.10 H Estimated GFR/1.73 m2 30 BUN/Creatinine Ratio 19.5 Glucose Level 438 *H Calcium Level 9.3 Total Bilirubin 0.6 Aspartate Amino Transf (AST/SGOT) 7 L Alanine Aminotransferase (ALT/SGPT) 22 Alkaline Phosphatase 82 Troponin I High Sensitivity 50 Total Protein 7.7 Albumin 3.2 L Globulin 4.5 H Albumin/Globulin Ratio 0.7 L Thyroid Stimulating Hormone (TSH) 3.17 Chemistry Comments Urine Specimen Description Cln catch midstream Urine Color Straw Urine Clarity Clear Urine pH 7.0 Urine Specific [place] 1.010 Urine Protein Negative Urine Glucose (UA) >=1000 H Urine Ketones Negative Urine Occult Blood Negative Urine Nitrite Negative Urine Bilirubin Negative Urine Urobilinogen 0.2 Urine Leukocyte Esterase Negative Urine RBC None seen Urine WBC 0-4 Urine Squamous Epithelial Cells None seen Urine Bacteria None seen Urine Mucus None seen Urine Culture Indicated Not ind Volume Urine Centrifuged 10 ml Urine Comment EKG/XRAY/CT/US/VASC/MRI EKG : Additional Comment I personally interpreted the EKG and this shows: Ventricular paced rhythm, rate 70, QTC 504 CT : Impression I personally interpreted the CT scan, and this shows no intracranial hemorrhage CTA report per Radiology shows no large vessel occlusion Consults/PCP Consults/PCP : Additional Comment Consult: I spoke to the internal medicine service, for admission in the hospital Medical Decision Making Additional information obtaine: old records Findings Reviewed past records Differential Dx:Considerations: Include: anemia, CVA, dehydration, dysrhythmia, electrolyte imbalance, hypoglycemia, renal failure, TIA Additional Information The patient presents with dizziness, worse with standing. He is not able to stand or walk today. No other focal neurologic deficits except for some nystagmus with eye movement. His workup does show an acute kidney injury. He was given IV fluids. No urinary tract infection or other acute abnormality. CT of the head and CTA head and neck did not show obvious signs of a new stroke. Overall this seems likely dehydration related to Lasix and elevated blood glucose. Given his significant symptoms he will require admission for further workup and treatment. Departure Impression: Primary Impression: Dizziness Additional Impressions: Acute kidney injury Hyperglycemia Referrals: NO PRIMARY CARE PROVIDER (PCP) Signature Scribe Signature: na Attestation: YESICA Vaca MD Jun 29, 2025 09:49
--- NOTE | 2025-06-29 10:04 | ELECTROCARDIOGRAPH REPORT ---
[facility] Test Date: 2025-06-29 Test Time: 10:00:35 Pat Name: CHAUNCEY BRUSH Department: [facility] Patient ID: [facility]-[id number] Room: [place] [address] Gender: M Pipe Bender: : 1940 Requested By: YESICA VILLEDA Order Number: [id number] Reading MD: Dr. DEION Wood Measurements Intervals [place] Rate: 70 P: 0 WV: 46 QRS: -75 QRSD: 150 T: 68 QT: 467 QTc: 504 Interpretive Statements Ventricular-paced complexes No further analysis attempted due to paced rhythm Electronically Signed On 07-01-2025 18:38:[address] DEION Wood Please click the below link to view image of tracing.
[2025-06-29 10:27] LABS: MEAN PLATELET VOLUME 6.6 FL (7.4-10.4); RED CELL DISTRIBUTION WIDTH 19.9 % (11.5-14.5)
[2025-06-29] MEDS ORDERED: iohexol 350 MG/ML 50ML vial IV ONE (10:45)
[2025-06-29 11:15] LABS: EOSINOPHILS % (MANUAL) 1.0 % (0-6); LYMPHOCYTES % (MANUAL) 10.0 % (21-51); MONOCYTES % (MANUAL) 8.0 % (2-12); NEUTROPHILS % (MANUAL) 81.0 % (42-75); PLATELET ESTIMATE NORMAL
[2025-06-29 11:17] LABS: ELLIPTOCYTES 1+
[2025-06-29 12:30] LABS: CREATININE 2.10 MG/DL (0.60-1.10); TOTAL CARBON DIOXIDE 33.5 MMOL/L (24-32); eCRCL 25 ML/MIN; eGFR 30 ML/MIN
--- NOTE | 2025-06-29 12:50 | RADIOLOGY REPORT ---
CT CTA NECK/HEAD, CT CT HEAD INDICATION: dizzy/vertigox2 days TECHNIQUE: CT angiography along with MIP and MPR images were obtained of the [place] arteries. CT angiography along with MIP and MPR images were obtained of the cervical carotid and vertebral arteries. All CT scans at this facility use dose modulation, iterative reconstruction, and/or weight based dosing when appropriate to reduce radiation dose to as low as reasonably achievable. 3-D postprocessing was performed on a separate workstation under radiologist supervision. IV CONTRAST: 100 mL of low osmolar intravenous iodinated contrast material was administered. COMPARISON: CT CT HEAD on DOS: 07/09/24 FINDINGS: ANTERIOR CIRCULATION: Distal internal carotid arteries including the petrous, cavernous, and supraclinoid segments are patent bilaterally. Anterior cerebral arteries including the A1 and A2 segments are patent bilaterally. Anterior communicating artery patent without aneurysm formation. Middle cerebral arteries including the horizontal M1 and sylvian M2 are patent bilaterally. Congenitally absent versus hypoplastic posterior communicating arteries. POSTERIOR CIRCULATION: Right vertebral artery dominance. Vertebral arteries are patent. The intracranial segments of the vertebral arteries are patent bilaterally. The basilar artery is patent without aneurysm formation. The posterior inferior cerebellar arteries are patent bilaterally. CERVICAL VESSELS: The thoracic aortic arch is patent without evidence of aneurysmal dilatation or dissection. The right common carotid artery, carotid bulb, and cervical segment of the right internal carotid artery are patent The left common carotid artery, carotid bulb, and cervical segment of the left internal carotid artery are patent The cervical segments of the vertebral arteries are patent OTHER: Left anterior chest cardiac device. Postsurgical changes likely related to prior coronary artery bypass graft surgery. The lung apices are clear. IMPRESSION: 1. No large vessel occlusion, aneurysmal dilatation, or dissection seen within the intracranial vessels. 2. No hemodynamically significant stenosis, aneurysmal dilatation, or dissection seen within the cervical vessels. 3. Redemonstration of hypoattenuation of the left parietal to posterior frontal lobe as described on prior CT of the head 07/09/24.
--- NOTE | 2025-06-29 12:52 | RADIOLOGY REPORT ---
EXAM: CT CT HEAD INDICATION: Dizziness for 3 days, unable to stand up TECHNIQUE: CT of the head without intravenous contrast. Coronal and sagittal reformatted images are submitted. Radiation Dose : 1. Head: CT Dose: CTDI volume is 62.4 mGy. Dose-length product is 1141.7 mGy*cm The dose indicators for CT are the volume Computed Tomography (CT) Dose Index (CTDIvol) and the Dose Length Product (DLP), and are measured in units of mGy and mGy-cm, respectively. These indicators are not patient dose, but values generated from the CT scanner acquisition factors. The report includes radiation exposure data for exposures received during this examination. All CT scans at this medical facility are performed using dose modulation techniques as appropriate to a performed exam including the following: Automated exposure control was utilized; adjustment of the MA and/or KV according to patient size; and use of iterative reconstruction technique. COMPARISON: CT CT HEAD on DOS: 07/09/24. FINDINGS: There is no evidence of acute intracranial hemorrhage, extra-axial collection, mass effect, midline shift, herniation or hydrocephalus. There is encephalomalacia in the left parietal lobe. The ventricles, sulci and cisterns are age appropriate. The mathis-white differentiation is intact. The visualized paranasal sinuses and mastoid air cells are clear. No depressed calvarial fracture. The surrounding soft tissues are unremarkable. IMPRESSION: 1. No evidence of acute intracranial abnormality.
[2025-06-29 13:26] LABS: LEUKOCYTE ESTERASE ,URINE NEGATIVE (Neg); NITRITES, URINE NEGATIVE (Neg); OCCULT BLOOD,URINE NEGATIVE (Neg)
[2025-06-29 13:31] LABS: UA COLLECTION TYPE CLN CATCH MIDSTREAM
[2025-06-29 13:35] LABS: MUCUS STRANDS NONE SEEN /LPF (Neg); SQUAMOUS EPITHELIAL CELL,UR NONE SEEN /LPF (FEW)
--- NOTE | 2025-06-29 13:45 | RADIOLOGY REPORT ---
DI CHEST,TWO VIEWS, HISTORY: Dizziness, CHF COMPARISON: DI CHEST,SINGLE VIEW on DOS: 07/09/24, CHEST,TWO VIEWS on DOS: 08/14/22, CHEST,SINGLE VIEW on DOS: 08/13/22 DI CHEST,SINGLE VIEW on DOS: 07/09/24, CHEST,TWO VIEWS on DOS: 08/14/22, CHEST,SINGLE VIEW on DOS: 08/13/22 TECHNICAL DATA: 1 view of the chest was obtained. FINDINGS: Lines and tubes: Cardiac pacer is noted. Cardiomediastinal silhouette: Enlarged. Pulmonary vasculature: normal Lung expansion: normal Lung airspace: normal Lung interstitium: normal Pleura: normal Pneumothorax: no Bones: Unremarkable Other: no IMPRESSION: No acute intrathoracic abnormality.
[2025-06-29] MEDS: normal saline 500ml IV soln 500 ML IV ONE (14:04)
[2025-06-29] MEDS: normal saline 1000ml 1,000 ML IV ONE (14:04)
[2025-06-29] MEDS ORDERED: ondansetron/PF 4mg/2ml inj IV PRN (14:05)
[2025-06-29] MEDS ORDERED: potassium Cl 40MEQ/1/2NS 520ml 520 ML IV PRN (14:05)
[2025-06-29] MEDS ORDERED: potassium Cl 20 mEq SR tablet PO PRN (14:05)
[2025-06-29] MEDS ORDERED: magnesium sulf-water 2g/50mL 50 ML IV PRN (14:05)
[2025-06-29] MEDS ORDERED: dextrose 50%-water 50ml dispensing syringe IV PRN ×2 (14:05)
[2025-06-29] MEDS ORDERED: magnesium Cl slow-release 64mg tablet PO PRN (14:05)
[2025-06-29] MEDS ORDERED: DEXTROSE 15 GM of carb/4 tabs (each vial/BOTTLE has 4 tablets) PO PRN ×2 (14:05)
[2025-06-29] MEDS ORDERED: magnesium sulf-water 4G/100mL 100 ML IV PRN (14:05)
[2025-06-29] MEDS ORDERED: bisacodyl 10mg suppository rectal RC PRN (14:05)
[2025-06-29] MEDS ORDERED: glucagon, human recombinant 1mg kit SUBCUT PRN (14:05)
[2025-06-29] MEDS ORDERED: morphine 4 MG/ML inj SYRINge IV PRN (14:18)
[2025-06-29] MEDS: INSULIN LISPRO 100 UNIT/ML INSULN.PEN MULTI-DOSE SQ SCH (17:00)
[2025-06-29] MEDS: normal saline 1000ml 1,000 ML IV SCH (17:33)
--- NOTE | 2025-06-29 17:38 | HISTORY AND PHYSICAL ---
History & Physical Providers to CC ~ History of Present Illness Reason for Admit\Complaint: Dizziness getting worse History of Present Illness Patient is 85-year-old male with history of mechanical fall, orthostatic hypotension, 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 He feels he gets dizzy when he tried to sit up or stand up denied any loss of consciousness he is feeling weak. He does not feel any spinning sensation like vertigo. He mentioned to me that he is taking fluid pill to take out some fluid from the right lower extremity swelling which is chronic. Patient also feel discomfort over the right calf area on palpation but his main concern is still the dizziness. Patient follows with instrument specialist in outpatient setting. Patient denied any other symptoms no shortness of breaths no chest pain no irregular heart rate no other associated symptoms Allergies: Coded Allergies: gabapentin (Verified Allergy, Unknown, PSYCHOSIS, 06/29/25) latex (Verified Allergy, Unknown, BLISTERS, 06/29/25) Home Medications Home Medications Active Reported Metoprolol Succinate 100 Mg Tab.sr.24h 1 Tab PO DAILY 30 Days Spironolactone 25 Mg Tablet 1 Tab PO DAILY 30 Days Lanoxin* (Digoxin) 125 Mcg Tablet 1 Tab PO DAILY 30 Days Cordarone (Amiodarone HCl) 200 Mg Tablet 200 Mg PO DAILY Lisinopril 20 Mg Tablet 2.5 Mg PO DAILY 30 Days ZAROXOLYN tablet (Metolazone) 2.5 Mg Tablet 1 Tab PO DAILY PRN Prednisone (Prednisone) 10 Mg Tablet 1 Tab PO DAILY Coreg (Carvedilol) 6.25 Mg Tablet 0.5 Tab PO BID Ondansetron Odt (Ondansetron HCl) 4 Mg Tab.rapdis 1 Tab PO Q8H PRN Hydrocodon-Acetaminophn 10-325 tablet (Acetaminophen/Hydrocodone Bitart) 1 Each Tablet 1 Tab PO TID PRN Eliquis (Apixaban) 5 Mg Tablet 1 Tab PO BID Amaryl* (Glimepiride) 4 Mg Tablet 1 Tab PO DAILY 30 Days Lasix* (Furosemide) 80 Mg Tablet 1 Tab PO BID Potassium Chloride 10 Meq Tab.prt.sr 20 Meq PO DAILY Past Medical History Past Medical History Coronary artery disease status post CABG/stent more than 10 years ago Pacemaker placement CHF with reduced ejection fraction Hypertension Atrial fibrillation Mitral valve stenosis status post repair/replacement CVA, TIA Past Surgical History Surgical History Comment CABG, coronary artery stent more than 10 years ago Mitral valve stenosis status post mitral valve repair/replacement in 12/14 Bilateral total knee replacement Family History Family History: FHx: kidney cancer Past Social History Social History Comment Patient lives by himself, he is able to ambulate but gets dizzy off and on . Denies use of any alcohol tobacco or any recreational drugs ROS ROS Review of system as mentioned above in HPI rest of the review of system unremarkable Exam Vitals: Vital Signs Date Time Temp Pulse Resp B/P (MAP) Pulse Ox O2 Delivery O2 Flow Rate FiO2 06/29/25 15:12 86 19 130/71 (90) 100 0 06/29/25 09:46 97.8 General: General-patient not in any acute distress, alert awake oriented, chronically ill-appearing, age-appropriate, looks comfortable HEENT-atraumatic normocephalic, neck supple without elevated JVD, no thyromegaly or carotid bruit. No lymphadenopathy bilaterally. Eyes-no icterus or pallor seen in eyes Chest-clear to auscultation bilaterally, breathing nonlabored no tachypnea, no wheezing, no crepitation, no crackles. Heart-S1-S2 normal, regular heart rate no murmur. Patient has pacemaker in place over left side of the chest Abdomen bowel sounds positive on auscultation, soft nondistended nontender no guarding, no rigidity Skin no active skin rash Neurology-grossly intact, nonfocal alert awake oriented Extremity- no pedal edema able to move all 4 extremities. Right lower extremity bigger than left lower extremity. Signs of discomfort on palpation present over right calf muscle area Psychiatry - patient is not confused or agitated cooperated during physical examination Diagnostic Data Last Recorded Lab Results: 06/29/25 1011 06/29/25 1011 Advance Care Planning Advanced Care plannin - 30 Minutes Additional Plan Patient is 85-year-old male with history of mechanical fall, orthostatic hypotension, 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 Patient is admitted for dizziness/near-syncope, uncontrolled DM, hyponatremia, hypokalemia acute on chronic kidney injury elevated WBC count. Started on hypo and hyperglycemic protocol for uncontrolled diabetes. Further workup ordered for dizziness. Patient's pacemaker is not compatible for MRI we will not be able to order MRI head for him at this point of time. Patient is started on IV fluids for acute on chronic kidney disease. Repeat echocardiogram ordered. Doppler ultrasound ordered for right lower extremity pain/discomfort and we will follow the results. Patient's hyponatremia, hypokalemia , leukocytosis and dizziness likely related to patient's Lasix 80 mg once daily dose which he is taking in outpatient setting. Patient's dizziness is multifactorial, on oxycodone in outpatient setting. further Sepsis workup ordered due to elevated WBC count. We will continue to monitor patient's labs and vitals closely . All labs, diagnostic workup, old records and ER records and outpatient records reviewed Needs physical therapy evaluation before discharge . Code status discussed with the patient patient wishes DNR/DNI Time spent in discussing code status 16 minutes. We will do home medication reconciliation once updated in electronic by nursing staff or pharmacist. Further management depending on response to treatment and I will continue to follow patient in a.m. Date of Service: Jun 29, 2025 Billing Provider: HERSON VILLAVICENCIO MD Common Visit Codes: 82566-[id number] INP/OBS CARE (HIGH) Secondary Visit Codes: 64779-[id number] CARE PLAN 30 MINUTES HERSON VILLAVICENCIO MD Jun 29, 2025 17:38
[2025-06-29 20:00] VITALS: BP 115/64; PULSE 70; RESP 16; TEMP 98.2; O2SAT 97
[2025-06-29] MEDS: K and/or MAG REPLACEMENT MC SCH (20:00)
[2025-06-29] MEDS: potassium Cl 20 mEq SR tablet PO PRN (21:23)
[2025-06-29] MEDS: heparin, porcine 5000 units/ml vial SQ SCH (21:30)
[2025-06-29 22:00] VITALS: BP 129/62; PULSE 63; RESP 16; TEMP 97; O2SAT 99
[2025-06-30] VITALS (8 sets, daily range): BP systolic 110–136; BP diastolic 51–74; PULSE 22–92; RESP 14–16; TEMP 97–98.7; O2SAT 95–99
[2025-06-30] MEDS: HYDROcodone/acetaminophen 5mg/325mg tablet PO PRN (01:55)
[2025-06-30 06:14] LABS: MEAN PLATELET VOLUME 6.1 FL (7.4-10.4); RED CELL DISTRIBUTION WIDTH 20.1 % (11.5-14.5)
[2025-06-30 06:29] LABS: CREATININE 1.54 MG/DL (0.60-1.10); TOTAL CARBON DIOXIDE 33.1 MMOL/L (24-32); eCRCL 34 ML/MIN; eGFR 43 ML/MIN
[2025-06-30] MEDS: metoprolol succinate 25mg (24-HOUR) SR. Tablet PO SCH (08:00)
--- NOTE | 2025-06-30 08:55 | VASCULAR REPORT ---
[facility] Vascular Department [facility] [address] [place] [address] [email or web address] centerAccipiter Radar ZACHARY JOSE AHÉCTOR Name : CHAUNCEY BRUSH Date : 06/30/2025 Accession# : [id number] Birthdate : 1940 Sex : M Age : 85Y Marketing Researcher : Momo Teran BS, RVT Referring Dr. : HERSON VILLAVICENCIO, Preliminary Report The above named patient was referred for a NON-INVASIVE LOWER EXTREMITY VENOUS EXAMINATION. The evaluation includes grayscale imaging, color flow Doppler and spectral analysis of the major deep and superficial lower extremity veins. Right Lower Extremity Venous Study for DVT Patient IN-PATIENT InaRSations Right lower extremity pain/swelling Medications Eliquis Vein Imaging (Right) CFV (R): Compressible, Spontaneous, Respirophasic, Augmentation Reflux: ms SFJ (R): Compressible, Spontaneous, Respirophasic, Augmentation Reflux: ms FEM (R): Compressible, Spontaneous, Respirophasic, Augmentation Reflux: ms POP (R): Compressible, Spontaneous, Respirophasic, Augmentation Reflux: ms DFV (R): Compressible, Spontaneous, Respirophasic, Augmentation Reflux: ms PTV (R): Compressible, Spontaneous, Respirophasic, Augmentation Reflux: ms GSV (R): Previously harvested in the thigh Compressible, Spontaneous, Respirophasic, Augmentation Reflux: ms Peroneals (R): Compressible, Spontaneous, Respirophasic, Augmentation Reflux: ms Doppler Evaluation (Right) CFV (R): Spontaneous, Respirophasic POP (R):Spontaneous, Respirophasic Impression: No sonographic evidence of thrombus within the right lower extremity. All interrogated vessels appear patent and demonstrate spontaneous, respirophasic waveforms. The right Great Saphenous Vein in the thigh appears previously harvested.
[2025-06-30] MEDS: digoxin 125mcg (0.125mg) tablet PO SCH (15:52)
[2025-06-30] MEDS ORDERED: carvedilol 6.25mg tablet PO SCH (20:00)
--- NOTE | 2025-06-30 20:05 | PROGRESS NOTE ---
Daily Progress Note Providers to CC ~ Antibiotic Timeout Antibiotic Ordered?: No Subjective Patient was seen in his room he wanted to get his home medications. Counseling done regarding side effects of Lasix with him. Objective Vital Signs Date Time Temp Pulse Resp B/P (MAP) Pulse Ox O2 Delivery O2 Flow Rate FiO2 06/30/25 18:30 82 06/30/25 16:22 97.3 16 136/64 (88) 98 Room Air 06/30/25 08:24 0.0 Result Diagram: 06/30/25 0549 06/30/25 0549 General-patient not in any acute distress, alert awake oriented, chronically ill-appearing, age-appropriate, looks comfortable HEENT-atraumatic normocephalic, neck supple without elevated JVD, no thyromegaly or carotid bruit. No lymphadenopathy bilaterally. Eyes-no icterus or pallor seen in eyes Chest-clear to auscultation bilaterally, breathing nonlabored no tachypnea, no wheezing, no crepitation, no crackles. Heart-S1-S2 normal, regular heart rate no murmur. Patient has pacemaker in place over left side of the chest Abdomen bowel sounds positive on auscultation, soft nondistended nontender no guarding, no rigidity Skin no active skin rash Neurology-grossly intact, nonfocal alert awake oriented Extremity- no pedal edema able to move all 4 extremities. Right lower extremity bigger than left lower extremity. 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 Patient is admitted for dizziness/near-syncope, uncontrolled DM, hyponatremia, hypokalemia acute on chronic kidney injury elevated WBC count. # poorly controlled diabetes hemoglobin A1c greater than 12.0, on hypo and hyperglycemic protocol for uncontrolled diabetes. # Further workup ordered for dizziness. near syncope- . Patient's pacemaker is not compatible for MRI we will not be able to order MRI head for him at this point of time. repeat echocardiogram today and results pending. Head and neck CTA unremarkable for any large vessel occlusion,aneurysmal dilatation, or dissection seen within the intracranial vessels.No hemodynamically significant stenosis, aneurysmal dilatation, or dissection seen within the cervical vessels. #Patient's hyponatremia, hypokalemia , leukocytosis and dizziness likely related to patient's Lasix 80 mg once daily dose which he is taking in outpatient setting. Patient's dizziness is multifactorial, on oxycodone in outpatient setting. We will do replacement of potassium as per protocol. Hyponatremia and leukocytosis resolved. Hyponatremia chronic likely secondary to uncontrolled diabetes and chronic congestive heart failure with reduced EF # Patient is started on IV fluids for acute on chronic kidney disease. # Doppler ultrasound ordered for right lower extremity pain/discomfort and it was negative for any acute thrombus within right lower extremity. # further Sepsis workup ordered due to elevated WBC count. Procalcitonin normal , sed rate 52, WBC 10.7 back to normal # Code status discussed with the patient patient wishes DNR/DNI We will continue to monitor patient's labs and vitals closely . Needs physical therapy evaluation before discharge . home medication reconciliation once updated in electronic records Further management depending on response to treatment and I will continue to follow patient in a.m. Date of Service: Jun 30, 2025 Billing Provider: HERSON VILLAVICENCIO MD Common Visit Codes: [id number] INP/OBS CARE(HIGH) HERSON VILLAVICENCIO MD Jun 30, 2025 20:05
[2025-07-01] VITALS (8 sets, daily range): BP systolic 119–137; BP diastolic 60–77; PULSE 70–77; RESP 13–20; TEMP 97.5–98.2; O2SAT 78–100
[2025-07-01 06:13] LABS: MEAN PLATELET VOLUME 6.4 FL (7.4-10.4); RED CELL DISTRIBUTION WIDTH 20.1 % (11.5-14.5)
[2025-07-01 06:31] LABS: CREATININE 1.50 MG/DL (0.60-1.10); TOTAL CARBON DIOXIDE 25.8 MMOL/L (24-32); eCRCL 35 ML/MIN; eGFR 45 ML/MIN
[2025-07-01] MEDS: potassium Cl 20 mEq SR tablet PO SCH (07:47)
[2025-07-01] MEDS: INSULIN LISPRO 100 UNIT/ML INSULN.PEN MULTI-DOSE SQ ONE (17:09)
--- NOTE | 2025-07-01 19:20 | PROGRESS NOTE ---
Daily Progress Note Providers to CC ~ Antibiotic Timeout Antibiotic Ordered?: No Subjective Patient was seen in his room , nursing staff [facility] patient is still having high blood sugars. He did not participated well with physical therapy and they recommended rehab for him. Objective Vital Signs Date Time Temp Pulse Resp B/P (MAP) Pulse Ox O2 Delivery O2 Flow Rate FiO2 07/01/25 18:14 72 07/01/25 15:00 97.8 15 119/60 (79) 97 07/01/25 08:00 Room Air 06/30/25 08:24 0.0 Result Diagram: 07/01/2527 07/01/25526 General-patient not in any acute distress, alert awake oriented, chronically ill-appearing, age-appropriate, looks comfortable HEENT-atraumatic normocephalic, neck supple without elevated JVD, no thyromegaly or carotid bruit. No lymphadenopathy bilaterally. Eyes-no icterus or pallor seen in eyes Chest-clear to auscultation bilaterally, breathing nonlabored no tachypnea, no wheezing, no crepitation, no crackles. Heart-S1-S2 normal, regular heart rate no murmur. Patient has pacemaker in place over left side of the chest Abdomen bowel sounds positive on auscultation, soft nondistended nontender no guarding, no rigidity Skin no active skin rash Neurology-grossly intact, nonfocal alert awake oriented Extremity- no pedal edema able to move all 4 extremities. Right lower extremity bigger than left lower extremity. 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 Patient is admitted for dizziness/near-syncope, uncontrolled DM, hyponatremia, hypokalemia acute on chronic kidney injury elevated WBC count. # poorly controlled diabetes hemoglobin A1c greater than 12.0, on hypo and hyperglycemic protocol for uncontrolled diabetes. # Further workup ordered for dizziness. near syncope- . Patient's pacemaker is not compatible for MRI we will not be able to order MRI head for him at this point of time. repeat echocardiogram showed left ventricular ejection fraction 20-25%, severely dilated left ventricular size and severely reduced function moderate concentric hypertrophy. Elevated right side heart pressure pacemaker wire in right heart. Head and neck CTA unremarkable for any large vessel occlusion,aneurysmal dilatation, or dissection seen within the intracranial vessels.No hemodynamically significant stenosis, aneurysmal dilatation, or dissection seen within the cervical vessels. #Patient's hyponatremia, hypokalemia , leukocytosis and dizziness likely related to patient's Lasix 80 mg once daily dose which he is taking in outpatient setting. Patient's dizziness is multifactorial, on oxycodone in outpatient setting. We will do replacement of potassium as per protocol. Hyponatremia and leukocytosis resolved. Hyponatremia chronic likely secondary to uncontrolled diabetes and chronic congestive heart failure with reduced EF # Patient is started on IV fluids for acute on chronic kidney disease. Serum creatinine and GFR improved # Doppler ultrasound ordered for right lower extremity pain/discomfort and it was negative for any acute thrombus within right lower extremity. # further Sepsis workup ordered due to elevated WBC count. Procalcitonin normal , sed rate 52, WBC 10.7 back to normal. Elevated WBC count patient is on steroids # Code status discussed with the patient patient wishes DNR/DNI We will continue to monitor patient's labs and vitals closely . home medication reconciliation once updated in electronic records . Patient needs rehab as per Physical therapy team and case maker Nuzhat working on discharge plan. Further management depending on response to treatment and I will continue to follow patient in a.m. Date of Service: Jul 01, 2025 Billing Provider: HERSON VILLAVICENCIO MD Common Visit Codes: [id number] INP/OBS CARE(HIGH) HERSON VILLAVICENCIO MD Jul 01, 2025 19:20
[2025-07-02 06:15] LABS: MEAN PLATELET VOLUME 6.3 FL (7.4-10.4); RED CELL DISTRIBUTION WIDTH 20.2 % (11.5-14.5)
[2025-07-02 06:22] LABS: CREATININE 1.37 MG/DL (0.60-1.10); TOTAL CARBON DIOXIDE 29.2 MMOL/L (24-32); eCRCL 38 ML/MIN; eGFR 50 ML/MIN
[2025-07-02 07:00] VITALS: BP 134/72; PULSE 80; RESP 19; TEMP 97.2; O2SAT 99
[2025-07-02 11:00] VITALS: BP 133/67; PULSE 70; RESP 15; TEMP 98.2; O2SAT 100
--- NOTE | 2025-07-02 15:29 | DISCHARGE SUMMARY ---
Discharge Summary Providers to CC ~ Discharge Summary Admission Diagnosis: Acute on chronic kidney disease, hyponatremia, uncontrolled diabetes, dizzy Hospital Course DATE OF ADMISSION: 06/29/25 DATE OF DISCHARGE:07/02/25 CBC testing done on July 02, 2025 WBC 11.5 hemoglobin 9.8 hematocrit 30.1 platelet count 315. Sed rate 52. Serum chemistry done on July 02, 2025 sodium 136 potassium 5.0 creatinine 1.37 GFR 50 normal liver enzymes hemoglobin A1c greater than calcitonin 0.24. VL VENOUSImpression: No sonographic evidence of thrombus within the right lower extremity. All interrogated vessels appear patent and demonstrate spontaneous, respi rophasic waveforms. The right Great Saphenous Vein in the thigh appears previously harvested. CHEST,SINGLE VIEWIMPRESSION: No acute intrathoracic abnormality. CTA NECK/HEADIMPRESSION: 1. No large vessel occlusion, aneurysmal dilatation, or dissection seen within the intracranial vessels. 2. No hemodynamically significant stenosis, aneurysmal dilatation, or dissection seen within the cervical vessels. 3. Redemonstration of hypoattenuation of the left parietal to posterior frontal lobe as described on prior CT of the head 07/09/24. CT HEAD-IMPRESSION: 1. No evidence of acute intracranial abnormality. 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 Patient is admitted for dizziness/near-syncope, uncontrolled DM, hyponatremia, hypokalemia acute on chronic kidney injury elevated WBC count. # poorly controlled diabetes hemoglobin A1c greater than 12.0, on hypo and hyperglycemic protocol for uncontrolled diabetes. # Further workup ordered for dizziness. near syncope- . Patient's pacemaker is not compatible for MRI we will not be able to order MRI head for him at this point of time. repeat echocardiogram showed left ventricular ejection fraction 20-25%, severely dilated left ventricular size and severely reduced function moderate concentric hypertrophy. Elevated right side heart pressure pacemaker wire in right heart. Head and neck CTA unremarkable for any large vessel occlusion,aneurysmal dilatation, or dissection seen within the intracranial vessels.No hemodynamically significant stenosis, aneurysmal dilatation, or dissection seen within the cervical vessels. #Patient's hyponatremia, hypokalemia , leukocytosis and dizziness likely related to patient's Lasix 80 mg once daily dose which he is taking in outpatient setting. Patient's dizziness is multifactorial, on oxycodone in outpatient setting. We will do replacement of potassium as per protocol. Hyponatremia and leukocytosis resolved. Hyponatremia chronic likely secondary to uncontrolled diabetes and chronic congestive heart failure with reduced EF # Patient is started on IV fluids for acute on chronic kidney disease. Serum creatinine and GFR improved # Doppler ultrasound ordered for right lower extremity pain/discomfort and it was negative for any acute thrombus within right lower extremity. # further Sepsis workup ordered due to elevated WBC count. Procalcitonin no rmal , sed rate 52, WBC 10.7 back to normal. Elevated WBC count patient is on steroids Patient is feeling better he has been afebrile and getting discharged to rehab in stable condition. Medication reconciliation done for rehab facility. Patient is seen and examined on the day of discharge. All labs, diagnostic workup and discharge plan discussed with patient before her discharge. All questions and queries answered to the best of my professional medical knowledge. I heard patient's concerns and address appropriately. Physical therapy team recommended rehab discharge for patient . regional facilities manager Nuzhat involved in patient's discharge plan. General-patient not in any acute distress, alert awake oriented, chronically ill-appearing, age-appropriate, looks comfortable HEENT-atraumatic normocephalic, neck supple without elevated JVD, no thyromegaly or carotid bruit. No lymphadenopathy bilaterally. Eyes-no icterus or pallor seen in eyes Chest-clear to auscultation bilaterally, breathing nonlabored no tachypnea, no wheezing, no crepitation, no crackles. Heart-S1-S2 normal, regular heart rate no murmur. Patient has pacemaker in place over left side of the chest Abdomen bowel sounds positive on auscultation, soft nondistended nontender no guarding, no rigidity Skin no active skin rash Neurology-grossly intact, nonfocal alert awake oriented Extremity- no pedal edema able to move all 4 extremities. Right lower extremity bigger than left lower extremity. Psychiatry - patient is not confused or agitated cooperated during physical examination *Problems/Diagnosis: (1) Hyperglycemia Status: Acute (2) Dizziness Status: Acute Total Time Spent on D/C: > 30 Minutes Date of Service: Jul 02, 2025 Billing Provider: HERSON VILLAVICENCIO MD Common Visit Codes: 66026-CDR/OBS DISCH DAY >30min HERSON VILLAVICENCIO MD Jul 02, 2025 15:26
--- NOTE | 2025-07-03 17:25 | CARDIOLOGY REPORT ---
APPROVED REPORT EXAM: Comprehensive 2D, Doppler, and color-flow Echocardiogram. Patient Location: [address] Heart Rate: 70's bpm Rhythm: SINUS Indications SYNCOPE DIZZINESS CONGESTIVE HEART FAILURE HYPERTENSION MV CLIP- UNKNOWN INFO PER PT PACEMAKER 2009 Home Designer: MD Kathie Previous echo: [facility] 07/11/24 EF 25-30%, LAE, Hector, trMR, trTR 2D Dimensions RVDd 2.8 cm IVSd 1.4 (0.7-1.1cm) LVDd 7.0 cm PWd 1.6 (0.7-1.1cm) IVSs 1.3 (0.8-1.2cm) LVDs 6.7 (2.5-4.0cm) PWs 1.6 (0.8-1.2cm) LVOT Diameter 2.03 (1.8-2.4cm) FS (%) 4.6 % SV 26.4 ml CO 1.9 L/min M-Mode Dimensions Left Atrium(MM) 5.08 (2.5-4.0cm) Aortic Root 3.61 (2.2-3.7cm) Aortic Cusp Exc 1.70 (1.5-2.0cm) Aortic Valve AoV Peak Wilfrido. 122.6 cm/s AoV VTI 18.6 cm AO Peak GR. 6.0 mmHg AO Mean GR. 3 mmHg LVOT VTI 12.51 cm LVOT Peak Wilfrido. 71.4 cm/s IZAIAH(VTI)/BSA 2.17 cm2/m2 IZAIAH (VTI) 2.17 cm2 AV DI 0.67 % Tricuspid Valve TR P. Velocity 360 cm/s RAP ESTIMATE 10 mmHg TR Peak Gr. 52 mmHg RVSP 62 mmHg LEFT VENTRICLE Severely dilated LV size with severely reduced function. Moderate concentric hypertrophy. There is severe LV systolic dysfunction present. Overall estimated LVEF is about 20-25%. RIGHT VENTRICLE RV is normal size and function. Estimated PA systolic pressure of 62 mm of mercury.. Pacemaker wire in right heart. ATRIA Left atrium is moderately dilated. AORTIC VALVE Trileaflet AV appears mildly sclerotic without stenosis. Trace insufficiency by color and spectral flow Doppler. MITRAL VALVE MitraClip appears well positioned with poor function. Moderate residual regurgitation by color and spectral flow Doppler. Peak / mean gradients of 3/.95 mmHg through the valve. Peak velocity is measured at 91 cm/s. TRICUSPID VALVE TV appears structurally normal with mild regurgitation by color and spectral flow Doppler. PULMONIC VALVE Normal PV without stenosis, physiologic insufficiency by color and spectral flow Doppler. GREAT VESSELS The aortic root is normal in size. PERICARDIUM Normal pericardium. No effusion. Other Information Study Quality: Adequate Conclusion There is severe LV systolic dysfunction present. Overall estimated LVEF is about 20-25%. Severely dilated LV size with severely reduced function. Moderate concentric hypertrophy. RV is normal size and function. Estimated PA systolic pressure of 62 mm of mercury.. Pacemaker wire in right heart. Trileaflet AV appears mildly sclerotic without stenosis. Trace insufficiency by color and spectral flow Doppler. MitraClip appears well positioned with poor function. Moderate residual regurgitation by color and spectral flow Doppler. Peak / mean gradients of 3/.95 mmHg through the valve. Peak velocity is measured at 91 cm/s. TV appears structurally normal with mild regurgitation by color and spectral flow Doppler. Normal PV without stenosis, physiologic insufficiency by color and spectral flow Doppler. Normal pericardium. No effusion.
== END 2025-07-02 14:40 | DRG 637 ==
LOC: ER 09:42 → ED HOLD 14:09 → PCU 3S 19:13
PROVIDERS: ADMIT Internal Medicine; ATTEND Internal Medicine
PROC: B3251ZZ Computerized Tomography (CT Scan) of Bilateral Common Carotid Arteries using Low Osmolar Contrast (ICD-10-PCS; principal; 2025-06-29)
PROC: B32G1ZZ Computerized Tomography (CT Scan) of Bilateral Vertebral Arteries using Low Osmolar Contrast (ICD-10-PCS; 2025-06-29)
PROC: B32R1ZZ Computerized Tomography (CT Scan) of Intracranial Arteries using Low Osmolar Contrast (ICD-10-PCS; 2025-06-29)
PROC: B3281ZZ Computerized Tomography (CT Scan) of Bilateral Internal Carotid Arteries using Low Osmolar Contrast (ICD-10-PCS; 2025-06-29)
DX: E11.65 Type 2 diabetes mellitus with hyperglycemia (principal); N17.0 Acute kidney failure with tubular necrosis; Z66 Do not resuscitate; E87.1 Hypo-osmolality and hyponatremia; E11.22 Type 2 diabetes mellitus with diabetic chronic kidney disease; E87.6 Hypokalemia; D72.829 Elevated white blood cell count, unspecified; I50.22 Chronic systolic (congestive) heart failure; I13.0 Hypertensive heart and chronic kidney disease with heart failure and stage 1 through stage 4 chronic kidney disease, or unspecified chronic kidney disease; N18.9 Chronic kidney disease, unspecified; T50.1X5A Adverse effect of loop [high-ceiling] diuretics, initial encounter; I25.10 Atherosclerotic heart disease of native coronary artery without angina pectoris; I48.91 Unspecified atrial fibrillation; Z96.653 Presence of artificial knee joint, bilateral; Z88.8 Allergy status to other drugs, medicaments and biological substances; Y92.89 Other specified places as the place of occurrence of the external cause; Z91.040 Latex allergy status; Z95.1 Presence of aortocoronary bypass graft; Z95.0 Presence of cardiac pacemaker; Z86.73 Personal history of transient ischemic attack (TIA), and cerebral infarction without residual deficits; Z79.899 Other long term (current) drug therapy; I25.2 Old myocardial infarction; Z80.51 Family history of malignant neoplasm of kidney; Z95.5 Presence of coronary angioplasty implant and graft
CPT/HCPCS: 36415; 70450; 70496; 70498; 71045; 80053; 81001; 82948; 83036; 84145; 84443; 84484; 85007; 85025; 85651; 87081; 93005; 93306; 93971; 96360; 96372; 97110; 97161; 97530; 99285; A6250; A6253; A6258; G0378; J1644; J1815; J7030; J7040; J7512; Q9967